=== PATIENT | female | born 1935 | race Caucasian/White ===

== ENCOUNTER → 2016-10-29 | Outpatient (CLI) | payer MEDICARE, BC ==
[~2016-10-29] MED LIST: ACET325 PO; AMLO5 PO; AMLO5TAB2 PO; AMLO5TAB96 PO; ASPI81 PO; ATEN-100 PO; ATEN25TA PO; BENZ1CAP8 PO; CALC1TAB55 PO; COQ1100C; COUM2.5T PO; COUM5TAB PO; FISH1000; FISH1000 PO; LISI-515 PO; PRAZ1CAP PO; ROSU10 PO; ROSU1TAB8 PO; VITA100021 SL; WARF2.5 PO
[2016-10-29 15:26] LABS: INTERNATIONAL NORMALIZED RATIO 1.8 RATIO; PROTHROMBIN TIME - PATIENT 20.1 SEC (9.8-11.6)
== END ==
LOC: PLAB 13:53
PROVIDERS: ATTEND Family Medicine
DX: Z51.81 Encounter for therapeutic drug level monitoring (principal); Z79.01 Long term (current) use of anticoagulants
CPT/HCPCS: 36415; 85610

== ENCOUNTER → 2016-11-06 | Outpatient (CLI) | payer MEDICARE, BC ==
[2016-11-06 12:35] LABS: PROTHROMBIN TIME - PATIENT 22.5 SEC (9.8-11.6)
[2016-11-06 13:04] LABS: BLOOD, URINE NEG (NEG); GLUCOSE,URINE NEG (NEG); KETONE, URINE NEG (NEG); MUCUS URINE FEW /lpf (OCC); NITRITE,URINE NEG (NEG); PH, URINE 6.5 (5.0-8.5); SQUAMOUS EPITHELIAL CELL URINE <1 /hpf (0-5); URINE COLOR YELLOW (YELLW/STRAW)
[2016-11-06 13:07] LABS: AUTOMATED NEUTROPHIL # 3.5 TH/MM3 (1.8-7.7); BASOPHIL # 0.1 TH/MM3 (0-0.2); BASOPHIL % 1.4 % (0.0-2.0); EOSINOPHIL # 0.2 TH/MM3 (0-0.4); EOSINOPHIL % 3.6 % (0.0-4.0); HEMATOCRIT 36.5 % (35.0-46.0); HEMO FLAGS DIFF FINAL; LYMPHOCYTE # 1.6 TH/MM3 (1.0-4.8); MEAN CELL VOLUME 86.4 FL (80.0-100.0); MEAN CORPUSCULAR HEMOGLOBIN 29.1 PG (27.0-34.0); MEAN CORPUSCULAR HGB CONC 33.6 % (32.0-36.0); PLATELET COUNT 156 TH/MM3 (150-450); RED BLOOD COUNT 4.22 MIL/MM3 (4.00-5.30); RED CELL DISTRIBUTION WIDTH 15.2 % (11.6-17.2); WHITE BLOOD COUNT 5.9 TH/MM3 (4.0-11.0)
[2016-11-06 13:09] LABS: URINE TOTAL PROTEIN TIMED 13.1 MG/DL
[2016-11-06 13:16] LABS: BICARBONATE 28.6 MEQ/L (21.0-32.0); POTASSIUM 4.4 MEQ/L (3.5-5.1)
[2016-11-06 13:28] LABS: KAPPA LAMBDA RATIO 2.63 (1.57-3.93); TOTAL PROTEIN SPE 7.5 GM/DL (6.0-7.6)
[2016-11-07 09:34] LABS: ALBUMIN SPE 4.67 GM/DL (3.50-5.00); ALPHA 1 GLOBULIN 0.21 GM/DL (0.11-0.29)
[2016-11-07 09:35] LABS: ALPHA 2 GLOBULIN 0.8 GM/DL (0.22-1.00); BETA GLOBULINS (SPE) 0.73 GM/DL (0.53-1.03)
[2016-11-07 12:07] LABS: ANA SCREEN NEG (NEG)
[2016-11-08 03:54] LABS: KAPPA/LAMBDA FREE 1.81 (0.26-1.65)
[2016-11-08 17:53] LABS: MYELOPEROXIDASE LESS THAN 1.0 AI (<1.0); PROTEINASE-3 LESS THAN 1.0 AI (<1.0)
== END ==
LOC: PLAB 11:22
PROVIDERS: ATTEND Internal Medicine Nephrology
DX: N18.3 Chronic kidney disease, stage 3 (moderate) (principal); Z79.01 Long term (current) use of anticoagulants
CPT/HCPCS: 36415; 80069; 81001; 82570; 82784; 83883; 83970; 84156; 84165; 85025; 85610; 86021; 86038; 86160; 86162; 86334; 86335; 86803

== ENCOUNTER → 2016-11-20 | Outpatient (CLI) | payer MEDICARE, BC ==
[2016-11-20 13:40] LABS: PROTHROMBIN TIME - PATIENT 23.3 SEC (9.8-11.6)
== END ==
LOC: PLAB 11:33
PROVIDERS: ATTEND Family Medicine
DX: Z79.01 Long term (current) use of anticoagulants (principal)
CPT/HCPCS: 36415; 85610

== ENCOUNTER 2016-12-06 21:11 | Inpatient (IN) | payer MEDICARE, BC ==
[~2016-12-06 21:11] MED LIST changes: -AMLO5 PO; -AMLO5TAB2 PO; -ATEN25TA PO; -BENZ1CAP8 PO; -CALC1TAB55 PO; -COQ1100C; -COUM2.5T PO; -COUM5TAB PO; -FISH1000; -LISI-515 PO; -PRAZ1CAP PO; -ROSU1TAB8 PO; -VITA100021 SL
[2016-12-06 21:16] VITALS: BP 185/94; PULSE 84; RESP 24; TEMP 99; O2SAT 97
[2016-12-06 21:55] VITALS: RESP 18; O2SAT 97
[2016-12-06] MEDS ORDERED: RESP: ALBUTEROL 2.5 MG/IPRATROPIUM 0.5 MG NEB (SCH) INH ONE (22:00)
--- NOTE | 2016-12-06 22:02 | PD ---
HPI Chief Complaint: Respiratory Distress Time Seen by Provider: 21:48 Travel History International Travel<30 days: No Contact w/Intl Traveler<30days: No Traveled to known affect area: No History of Present Illness HPI 80-year-old female presents to the emergency department for complaint of shortness of breath. Patient states for the past 2 days she's had a dry nonproductive cough. Patient was noted this evening while with her neighbors that she was having wheezing. Patient became concerned she may have pneumonia. Patient denies any fever or chills. Patient's had no hemoptysis or pleuritic chest pain. Patient denies any chest pain at this time. Patient has history of CAD with previous three-vessel CABG and porcine aortic valve replacement. Patient also has factor V Leiden for which she takes Coumadin daily. Patient more recently has been noted to have renal insufficiency and poorly controlled hypertension. Patient more recently has been placed under the care of Dr. Becerril as well as her primary provider Dr. Campa and her ongoing traffic court magistrate Dr. Andrade. Patient states she recently was started on a new blood pressure medication and took the first dose yesterday evening and took her second dose today at 5 PM. She does not know if her shortness of breath and cough are related to the new blood pressure medication. Patient rates pain 0/10 in intensity. Patient is unable to identify exacerbating or alleviating factors. No dyspnea on exertion orthopnea or PND. No shortness of breath at this time. Patient's had no sinus pressure drainage sore throat earache abdominal pain nausea vomiting diarrhea or urinary urgency frequency dysuria or hematuria. No flank pain. No new lower extremity pain or swelling. Patient reports she lives alone and became concerned that she may have pneumonia and that is why she presents at this time. [facility] Past Medical History Narrative Medical factor V leiden, hypertension, renal insufficiency, CAD, CABG, aortic valve disease, porcine aortic valve replacement, diminished hearing, dyslipidemia, cardiac catheterization, no tobacco use; nursing notes reviewed Blood Disorders: Yes (FACTOR 5 DISORDER) Heart Rhythm Problems: Yes (heart murmur) Cardiac Catheterization: Yes Cardiovascular Problems: Yes High Cholesterol: Yes Chest Pain: No Congestive Heart Failure: No Coronary Artery Disease: Yes Diabetes: No Diminished Hearing: Yes (HARD OF HEARING) Hypertension: Yes Myocardial Infarction: No Tetanus Vaccination: Unknown Influenza Vaccination: Yes ?: Not Menopausal: Yes Past Surgical History Cardiac Surgery: Yes (VALVE) Coronary Artery Bypass Graft: Yes (TRIPLE) Thoracic Surgery: Yes (CABG) Other Surgery: Yes Family History Family Myocardial Infarction: Yes Social History Alcohol Use: No Tobacco Use: No Substance Use: No Allergies-Medications (Allergen,Severity, Reaction): Coded Allergies: Ceclor (Verified Allergy, Severe, Hives, 12/06/16) Dexamethasone (Verified Allergy, Severe, Confusion, 12/06/16) Hydrocodone (Verified Allergy, Severe, Hives, 12/06/16) Niacin (Verified Allergy, Severe, HIVES, 12/06/16) Tricor (Verified Allergy, Severe, HIVES, 12/06/16) Reported Meds & Prescriptions Reported Meds & Active Scripts Active Reported Fish Oil (Blanca-3 Fatty Acids) 1,000 Mg Cap Calcium 500 +D3 (Calcium Carbonate-Cholecalciferol) 500-600 Mg-Unit Tab 1 Tab PO BID Vitamin B-12 (Cyanocobalamin) 1,000 Mcg Subl 1,000 Mcg SL DAILY Coq10 (Coenzyme Q10 (Ubidecarenone)) 100 Mg Cap Coumadin (Warfarin) 2.5 Mg Tab 2.5 Mg PO DIRECTED Coumadin (Warfarin) 5 Mg Tab 5 Mg PO DIRECTED Rosuvastatin (Rosuvastatin Calcium) 20 Mg Tab 20 Mg PO DAILY Atenolol 25 Mg Tab 12.5 Mg PO DAILY Lisinopril 20 Mg Tab 20 Mg PO BID Prazosin (Prazosin HCl) 1 Mg Cap 1 Mg PO BID Amlodipine (Amlodipine Besylate) 5 Mg Tab 5 Mg PO DAILY Review of Systems Except as stated in HPI: all other systems reviewed are Neg General / Constitutional: No: Fever, Chills HENT: No: Congestion Cardiovascular: No: Chest Pain or Discomfort, Diaphoresis Respiratory: Positive: Cough, Shortness of Breath, Wheezing Gastrointestinal: No: Nausea, Vomiting, Diarrhea, Abdominal Pain Genitourinary: No: Dysuria, Flank Pain Musculoskeletal: No: Myalgias, Arthralgias, Edema, Pain Skin: No Rash Neurologic: No: Weakness, Dizziness, Syncope, Focal Abnormalities, Coordination Problem Psychiatric: Positive: Anxiety Endocrine: No: Heat Intolerance Hematologic/Lymphatic: No: Easy Bruising Physical Exam Narrative GENERAL: Well-developed well-nourished female in no acute distress no respiratory distress SKIN: Warm and dry. HEAD: Atraumatic. Normocephalic. EYES: Pupils equal and round. No scleral icterus. No injection or drainage. ENT: No nasal bleeding or discharge. Mucous membranes pink and moist. NECK: Trachea midline. No JVD. CARDIOVASCULAR: Regular rate and rhythm. RESPIRATORY: No accessory muscle use. Clear to auscultation. Breath sounds equal bilaterally. GASTROINTESTINAL: Abdomen soft, non-tender, nondistended. Hepatic and splenic margins not palpable. MUSCULOSKELETAL: Extremities without clubbing, cyanosis, or edema. No obvious deformities. NEUROLOGICAL: Awake and alert. No obvious cranial nerve deficits. Motor grossly within normal limits. Five out of 5 muscle strength in the arms and legs. Normal speech. PSYCHIATRIC: Appropriate mood and affect; insight and judgment normal. Data Data Last Documented VS Vital Signs Date Time Temp Pulse Resp B/P Pulse Ox O2 Delivery O2 Flow Rate FiO2 12/06/16 22:43 75 18 213/89 97 Room Air 12/06/16 22:03 21 12/06/16 21:16 99.0 Orders Complete Blood Count With Diff (12/06/16 21:48) Basic Metabolic Panel (Bmp) (12/06/16 21:48) B-Type Natriuretic Peptide (12/06/16 21:48) Prothrombin Time / Inr (Pt) (12/06/16 21:48) Magnesium (Mg) (12/06/16 21:48) Ckmb (Isoenzyme) Profile (12/06/16 21:48) Troponin I (12/06/16 21:48) Urinalysis - C+S If Indicated (12/06/16 21:48) Influenzae A/B Antigen (12/06/16 21:48) Iv Access Insert/Monitor (12/06/16 21:48) Electrocardiogram (12/06/16 21:48) Ecg Monitoring (12/06/16 21:48) Oximetry (12/06/16 21:48) Oxygen Administration (12/06/16 21:48) Chest, Single Ap (12/06/16 21:48) Albuterol-Ipratropium Neb (Duoneb Neb) (12/06/16 22:00) CKMB (12/06/16 22:30) CKMB% (12/06/16 22:30) Acetaminophen (Tylenol) (12/07/16 00:00) Aspirin Chew (Aspirin Chew) (12/07/16 00:00) Nitroglycerin 2% Oint (Nitroglycerin 2% (12/07/16 00:00) Admit Order (Ed Use Only) (12/07/16 ) Admit To Inpatient (12/07/16 ) ^ Saline Lock (12/07/16 00:04) Vital Signs (Adult) Q4H (12/07/16 00:04) Resp Oxygen Bull C Titrat 1-4 L (12/07/16 ) Activity Oob With Assistance (12/07/16 00:04) ^ Notify Dr: Other (12/07/16 00:04) Sales Manager Prearranged Funerals / Telemetry .CONTINUOUS (12/07/16 00:04) Sodium Chloride 0.9% Flush (Ns Flush) (12/07/16 09:00) Intake + Output ADRIAN.QSHIFT (12/07/16 00:04) Sodium Chloride 0.9% Flush (Ns Flush) (12/07/16 00:15) Diet Npo (12/07/16 Breakfast) Consult Cardiology (12/07/16 00:04) Sodium Chlor 0.9% 1000 Ml Inj (Ns 1000 M (12/07/16 00:04) Sodium Chloride 0.9% Flush (Ns Flush) (12/07/16 00:15) Sodium Chloride 0.9% Flush (Ns Flush) (12/07/16 09:00) Ondansetron Inj (Zofran Inj) (12/07/16 00:15) Bisacodyl Supp (Dulcolax Supp) (12/07/16 00:15) Comprehensive Metabolic Panel (12/07/16 06:00) Complete Blood Count With Diff (12/07/16 06:00) Troponin I (12/07/16 06:00) Troponin I (12/07/16 12:00) Prothrombin Time / Inr (Pt) (12/08/16 06:00) Pharmacologic Contraindication (12/07/16 00:04) Acetaminophen (Tylenol) (12/07/16 00:15) Morphine Inj (Morphine Inj) (12/07/16 00:15) Inpatient Certification (12/07/16 ) Nitroglycerin 2% Oint (Nitroglycerin 2% (12/07/16 00:15) Amlodipine (Norvasc) (12/07/16 09:00) Atenolol (Tenormin) (12/07/16 09:00) Lisinopril (Prinivil) (12/07/16 09:00) Prazosin (Minipress) (12/07/16 09:00) Atorvastatin (Lipitor) (12/07/16 09:00) Labs Laboratory Tests Test 12/06/16 12/06/16 12/06/16 22:00 22:30 22:40 White Blood Count 6.0 TH/MM3 Red Blood Count 4.44 MIL/MM3 Hemoglobin 12.9 GM/DL Hematocrit 38.3 % Mean Corpuscular Volume 86.4 FL Mean Corpuscular Hemoglobin 29.1 PG Mean Corpuscular Hemoglobin 33.6 % Concent Red Cell Distribution Width 14.1 % Platelet Count 147 TH/MM3 Mean Platelet Volume 8.8 FL Neutrophils (%) (Auto) 74.5 % Lymphocytes (%) (Auto) 13.7 % Monocytes (%) (Auto) 6.7 % Eosinophils (%) (Auto) 4.5 % Basophils (%) (Auto) 0.6 % Neutrophils # (Auto) 4.5 TH/MM3 Lymphocytes # (Auto) 0.8 TH/MM3 Monocytes # (Auto) 0.4 TH/MM3 Eosinophils # (Auto) 0.3 TH/MM3 Basophils # (Auto) 0.0 TH/MM3 CBC Comment DIFF FINAL Differential Comment Prothrombin Time 31.0 SEC Prothromb Time International 2.7 RATIO Ratio Sodium Level 140 MEQ/L Potassium Level 4.9 MEQ/L Chloride Level 105 MEQ/L Carbon Dioxide Level 30.6 MEQ/L Anion Gap 4 MEQ/L Blood Urea Nitrogen 17 MG/DL Creatinine 1.20 MG/DL Estimat Glomerular Filtration 43 ML/MIN Rate Random Glucose 110 MG/DL Calcium Level 9.4 MG/DL Magnesium Level 2.0 MG/DL Total Creatine Kinase 189 U/L Creatine Kinase MB 3.9 NG/ML Troponin I 0.06 NG/ML B-Type Natriuretic Peptide 304 PG/ML Urine Color YELLOW Urine Turbidity CLEAR Urine pH 5.5 Urine Specific [place] 1.008 Urine Protein 100 mg/dL Urine Glucose (UA) NEG mg/dL Urine Ketones NEG mg/dL Urine Occult Blood SMALL Urine Nitrite NEG Urine Bilirubin NEG Urine Leukocyte Esterase NEG Urine RBC 3-5 /hpf Urine WBC 0-2 /hpf Urine Squamous Epithelial 0-5 /hpf Cells Urine Bacteria NONE /hpf Microscopic Urinalysis Comment CULT NOT INDICATED MDM Medical Decision Making Medical Screen Exam Complete: Yes Emergency Medical Condition: Yes Medical Record Reviewed: Yes (cardiac catheterization Dr. Nayana chu 07/2012 mildly elevated PA systolic pressure normal left ventricle systolic function severe aortic stenosis proximal to mid left anterior descending artery and proximal diagonal branch disease patent ZEE to LAD patent saphenous vein graft to diagonal branch could, circumflex and RCA system significant mid RCA disease with patent saphenous finger graft to mid RCA distal to the lesion normal LV systolic function with elevated left ventricular insert diastolic pressure subsequently patient underwent aortic valve replacement with porcine valve) Interpretation(s) EKG: Normal sinus rhythm rate 75 left bundle branch block pattern and left axis ; history of left bundle branch block since EKG 2011 Last Impressions Chest X-Ray 12/06/162147 Signed Impressions: Service Date/Time: November 22:21 - CONCLUSION: No acute disease. Edward Mondragon MD CBC & BMP Diagram 12/06/16 22:00 12/06/16 22:30 Vital Signs Date Time Temp Pulse Resp B/P Pulse Ox O2 Delivery O2 Flow Rate FiO2 12/06/16 22:43 75 18 213/89 97 Room Air 12/06/16 22:03 96 Room Air 12/06/16 22:03 96 Room Air 12/06/16 21:55 97 Room Air 12/06/16 21:55 18 97 Room Air 12/06/16 21:49 84 18 97 Room Air 12/06/16 21:16 99.0 84 24 185/94 97 Differential Diagnosis Dyspnea, CHF, ACS, bronchitis, pneumonia, PE, coagulopathy, electrolyte disturbance, anemia Narrative Course Patient placed on cardiac cath tech IV access obtained specimens collected and sent for resulting Patient received updraft treatment with resolution of wheezing and shortness of breath complaint Lab values pending patient conversing comfortably with visitor Chest x-ray no lobar infiltrate or vascular congestion CBC is automated differential mild left shift by automated differential otherwise values grossly normal range INR is therapeutic at 2.7 Chemistries remarkable for being gross within normal range creatinine is 1.20; troponin I however is elevated 0.06; CK total within normal range and CK-MB percent within normal limits 2% Patient aware of lab results and need for admission to the hospital reports feels well after updraft treatment administered aspirin 162 MG times one dose half inch Nitropaste applied to the chest wall; patient's case discussed with on -call traffic court magistrate for patient's traffic court magistrate Dr. Meeta Joseph requests patient be transferred to [facility] for ACS case discussed with on-call have his physician covering for Dr. Katheryn Norwood admit to her service to [facility] Physician Communication Physician Communication call placed to Dr Tim--discussed with Dr Preciado transfer to [facility] to medicine consult to Dr Tim; discussed with Dr Hoffman Diagnosis Primary Impression: Dyspnea Qualified Code: R06.02 - Shortness of breath Additional Impressions: ACS (acute coronary syndrome) Elevated troponin History of left bundle branch block (LBBB) Admitting Information Admitting Physician Requests: Admit Rowan Wylie MD Dec 06, 2016 22:02
[2016-12-06 22:03] VITALS: O2SAT 94; O2SAT 96
[2016-12-06 22:09] LABS: AUTOMATED NEUTROPHIL # 4.5 TH/MM3 (1.8-7.7); BASOPHIL % 0.6 % (0.0-2.0); EOSINOPHIL # 0.3 TH/MM3 (0-0.4); EOSINOPHIL % 4.5 % (0.0-4.0); HEMATOCRIT 38.3 % (35.0-46.0); HEMO FLAGS DIFF FINAL; LYMPH % 13.7 % (9.0-44.0); LYMPHOCYTE # 0.8 TH/MM3 (1.0-4.8); MEAN CELL VOLUME 86.4 FL (80.0-100.0); MEAN CORPUSCULAR HEMOGLOBIN 29.1 PG (27.0-34.0); MEAN CORPUSCULAR HGB CONC 33.6 % (32.0-36.0); MONO % 6.7 % (0.0-8.0); NEUT % 74.5 % (16.0-70.0); PLATELET COUNT 147 TH/MM3 (150-450); RED BLOOD COUNT 4.44 MIL/MM3 (4.00-5.30); RED CELL DISTRIBUTION WIDTH 14.1 % (11.6-17.2)
[2016-12-06] MEDS ORDERED: PRAZ1CAP PO (22:23)
[2016-12-06] MEDS ORDERED: LISI-515 PO (22:23)
[2016-12-06] MEDS ORDERED: AMLO5TAB2 PO (22:23)
[2016-12-06] MEDS ORDERED: ATEN25TA PO (22:31)
[2016-12-06] MEDS ORDERED: COUM5TAB PO (22:34)
[2016-12-06] MEDS ORDERED: COUM2.5T PO (22:34)
[2016-12-06] MEDS ORDERED: ROSU1TAB8 PO (22:34)
--- NOTE | 2016-12-06 22:36 | RADHPO ---
EXAM DATE/TIME: 12/06/2016 22:21 [place] COMPARISON: No previous studies available for comparison. INDICATIONS : Cough and congestion. MEDICAL HISTORY : Hypertension. SURGICAL HISTORY : CABG. Heart valve ENCOUNTER: Initial ACUITY: 1 day PAIN SCORE: 2/10 LOCATION: Bilateral chest FINDINGS: The patient is status post sternotomy. The heart size is normal. The lungs are clear. No effusion is seen. There appears to be a deformity at the proximal left humerus likely from prior fracturing. Ther e is an anterior cervical fusion plate in place.. CONCLUSION: No acute disease. Edward Mondragon MD on December 06, 2016 at 22:32 Board Certified Radiologist. This report was verified electronically.
[2016-12-06] MEDS ORDERED: FISH1000 (22:37)
[2016-12-06] MEDS ORDERED: COQ1100C (22:37)
[2016-12-06] MEDS ORDERED: VITA100021 SL (22:37)
[2016-12-06] MEDS ORDERED: CALC1TAB55 PO (22:37)
[2016-12-06 22:43] VITALS: BP 213/89; PULSE 75; RESP 18; O2SAT 97
[2016-12-06 22:54] LABS: INTERNATIONAL NORMALIZED RATIO 2.7 RATIO
[2016-12-06 22:55] LABS: CHLORIDE 105 MEQ/L (98-107); SODIUM (NA) 140 MEQ/L (136-145)
[2016-12-06 22:56] LABS: BLOOD, URINE SMALL (NEG); GLUCOSE,URINE NEG (NEG); KETONE, URINE NEG (NEG); NITRITE,URINE NEG (NEG); PH, URINE 5.5 (5.0-8.5)
[2016-12-06 22:58] LABS: ANION GAP 4 MEQ/L (5-15); BICARBONATE 30.6 MEQ/L (21.0-32.0); BLOOD UREA NITROGEN 17 MG/DL (7-18)
[2016-12-06 22:59] LABS: POTASSIUM 4.9 MEQ/L (3.5-5.1)
[2016-12-06 23:01] LABS: GLOMERULAR FILTRATION RATE 43 ML/MIN (>89)
[2016-12-06 23:01] LABS: COMMENT (UR) CULT NOT INDICATED; CULTURE IF INDICATED CULT NOT INDICATED; SQUAMOUS EPITHELIAL CELL URINE 0-5 /hpf (0-5); URINE COLOR YELLOW (YELLW/STRAW); WBC, URINE 0-2 /hpf (0-5)
[2016-12-06 23:05] LABS: CREATINE KINASE 189 U/L (26-192)
[2016-12-06 23:17] LABS: CKMB 3.9 NG/ML (0.5-3.6)
[2016-12-07] VITALS (21 sets, daily range): BP systolic 130–215; BP diastolic 61–95; PULSE 54–94; RESP 18–20; TEMP 98–98.4; O2SAT 96–98
[2016-12-07] MEDS ORDERED: NITROGLYCERIN 2% OINT 1 GM PACKET TOPICAL ONE
[2016-12-07] MEDS ORDERED: ASPIRIN 81 MG CHEW TAB CHEW ONE
[2016-12-07] MEDS ORDERED: ACETAMINOPHEN 325 MG TAB PO ONE
[2016-12-07] MEDS ORDERED: SODIUM CHLORIDE 0.9% FLUSH 5 ML FLUSH FLUSH PRN (00:15)
[2016-12-07] MEDS ORDERED: NITROGLYCERIN 2% OINT 1 GM PACKET TOPICAL PRN (00:15)
[2016-12-07] MEDS ORDERED: ONDANSETRON HCL 4 MG/2 ML VIAL IVP PRN (00:15)
[2016-12-07] MEDS ORDERED: MORPHINE SULFATE 4 MG/ML INJ IV PRN (00:15)
[2016-12-07] MEDS ORDERED: ACETAMINOPHEN 325 MG TAB PO PRN (00:15)
[2016-12-07] MEDS ORDERED: PILL SPLITTER OTHER PRN (00:15)
[2016-12-07] MEDS ORDERED: BISACODYL 10 MG SUPP PR PRN (00:15)
[2016-12-07] MEDS ORDERED: SODIUM CHLORIDE 0.9% FLUSH 5 ML FLUSH IVF PRN (00:15)
[2016-12-07] MEDS: SODIUM CHLOR 0.9% 1000 ML INJ 1,000 ML IV SCH ×3 (00:40→20:04)
[2016-12-07 05:45] LABS: AUTOMATED NEUTROPHIL # 3.3 TH/MM3 (1.8-7.7); BASOPHIL % 0.7 % (0.0-2.0); EOSINOPHIL # 0.2 TH/MM3 (0-0.4); EOSINOPHIL % 4.3 % (0.0-4.0); HEMATOCRIT 35.8 % (35.0-46.0); HEMO FLAGS DIFF FINAL; LYMPH % 22.3 % (9.0-44.0); LYMPHOCYTE # 1.1 TH/MM3 (1.0-4.8); MEAN CELL VOLUME 87.7 FL (80.0-100.0); MEAN CORPUSCULAR HEMOGLOBIN 29.1 PG (27.0-34.0); MEAN CORPUSCULAR HGB CONC 33.2 % (32.0-36.0); MONO % 10.2 % (0.0-8.0); NEUT % 62.5 % (16.0-70.0); PLATELET COUNT 144 TH/MM3 (150-450); RED BLOOD COUNT 4.09 MIL/MM3 (4.00-5.30); RED CELL DISTRIBUTION WIDTH 14.1 % (11.6-17.2); WHITE BLOOD COUNT 5.2 TH/MM3 (4.0-11.0)
[2016-12-07 06:29] LABS: ALKALINE PHOSPHATASE 47 U/L (45-117); ALT (GPT) 18 U/L (10-53); ANION GAP 8 MEQ/L (5-15); AST (GOT) 19 U/L (15-37); BICARBONATE 27.7 MEQ/L (21.0-32.0); BLOOD UREA NITROGEN 13 MG/DL (7-18); CHLORIDE 107 MEQ/L (98-107); GLOMERULAR FILTRATION RATE 48 ML/MIN (>89); POTASSIUM 3.8 MEQ/L (3.5-5.1); SODIUM (NA) 143 MEQ/L (136-145); TOTAL BILIRUBIN ADULT 0.6 MG/DL (0.2-1.0)
[2016-12-07] MEDS: LISINOPRIL 20 MG TAB PO SCH ×2 (07:34→20:58)
[2016-12-07] MEDS: ATORVASTATIN 40 MG TAB PO SCH (07:34)
[2016-12-07] MEDS: SODIUM CHLORIDE 0.9% FLUSH 5 ML FLUSH FLUSH SCH ×2 (07:35→20:58)
[2016-12-07] MEDS: ASPIRIN EC 81 MG TABEC PO SCH (08:30)
[2016-12-07] MEDS ORDERED: SODIUM CHLORIDE 0.9% FLUSH 5 ML FLUSH IVF SCH (09:00)
[2016-12-07] MEDS ORDERED: amLODIPine BESYLATE 5 MG TAB PO SCH (09:00)
[2016-12-07] MEDS ORDERED: ATENOLOL 25 MG TAB PO SCH (09:00)
[2016-12-07] MEDS ORDERED: PRAZOSIN HCL 1 MG CAP PO SCH (09:00)
[2016-12-07 09:08] LABS: CREATINE KINASE 131 U/L (26-192)
[2016-12-07 10:28] LABS: CKMB 3.5 NG/ML (0.5-3.6)
--- NOTE | 2016-12-07 11:51 | MB ---
cc: GENE DAY M.D., MARK B. M.D. SAXOUR, JOANNE D. M.D. DATE OF CONSULTATION 12/07/[address] Carolina Campa REASON FOR CONSULTATION Elevated troponin and coronary artery disease. HISTORY Ms. Moura is an 80-year-old white female who was doing well in her usual state of good health up until about two days ago when she started having a nonproductive cough and some minimal shortness of breath. She says over the past two days this has persisted. She denies any fevers, chills or night sweats. She was having some wheezing yesterday so she came to the emergency room for evaluation. She has also been having some trouble with her systolic blood pressure at home and it has been elevated above 150 she tells me. She denies any chest discomfort now or any time in the recent past. She denies orthopnea or PND type symptoms. She denies any lower extremity edema. PAST MEDICAL HISTORY 1. Coronary artery disease and aortic stenosis. 2. History of factor V Leiden for which she has been on long-term Coumadin anticoagulation. 3. DVT and PE. 4. longstanding hypertension. 5. [id number]. 7. Has chronic kidney disease. 8. Dyslipidemia 9. Denies any underlying pulmonary or liver disease. 10. longstanding heart murmur. PAST SURGICAL HISTORY Includes: 1. Aortic valve replaced with a porcine aortic valve around 2011. 2. Prior coronary artery bypass grafting surgery consisting of a saphenous vein bypass graft to the diagonal as well as the mid RCA and left internal mammary graft to the left anterior descending artery all of which were widely patent on a cardiac catheterization prior to her aortic valve replacement back on August 13, 2012. 3. Her left ventricular function was normal at that time with an ejection fraction of 60-65%. 4. She does not recall exact date of her bypass surgery, but says it was a of few years prior to her aortic valve surgery and was done at [facility]. ALLERGIES CECLOR, DEXAMETHASONE, HYDROCODONE, NIACIN AND TRICOR. CURRENT MEDICATIONS 1. Amlodipine 5 mg daily 2. Atenolol 12.5 mg daily 3. Lisinopril 20 mg p.o. b.i.d. 4. Prazosin 1 mg b.i.d. 5. Lipitor 40 mg daily 6. Warfarin which she was taken warfarin at home and is currently on hold. FAMILY HISTORY Significant for coronary artery disease. Father had cancer. Mother at age 60 with an MA. Had two sisters with hypertension, one sister with prior bypass surgery. SOCIAL HISTORY Denies tobacco or alcohol use. Walks on a regular basis. Does some water aerobics. REVIEW OF SYSTEMS Denies fevers, chills, night sweats, nausea, vomiting, diarrhea. Nonproductive cough as mentioned above. Denies lower extremity edema or claudication. Denies exertional or resting chest discomfort, orthopnea or PND type symptoms. Denies any recent bleeding problems. Except for that mentioned in the HPI, her complete 12-point review of systems is otherwise negative. PHYSICAL EXAM Physical examination reveals an elderly white female lying in bed in no distress at this time. VITAL SIGNS: Blood pressure 136/61 mmHg, heart rate is 58 and regular, respiratory rate 18, temperature 99, pulse oximeter is 97% on room air. HEAD: Normocephalic and atraumatic. EYES: Pupils equal and react to light. Sclerae anicteric. Extraocular movements intact. NECK: The neck is supple. There is no adenopathy. There is no jugular venous tension at 45 degrees. Carotid upstrokes are normal. There are no bruits. Thyroid exam is normal. LUNGS: Clear. HEART: PMI is not displaced. S1-S2 are normal. There is a grade 1-2/6 systolic murmur at the base. No diastolic murmurs, gallops or rubs. ABDOMEN: Bowel sounds present, soft, nontender, no hepatosplenomegaly, masses or bruits. EXTREMITIES: No cyanosis, clubbing or edema. Pulses are intact in the upper and lower extremities. Perfusion is adequate. NEUROLOGIC: Exam is nonfocal and grossly intact. Chest x-ray from last night shows no acute disease. EKG from admission last evening shows a sinus rhythm, left axis deviation, left bundle branch block, abnormal EKG. This EKG is unchanged compared to the previous tracings. LABORATORY DATA This morning white count 5.2, hemoglobin 11.9, hematocrit 35.8, platelet count 144,000. Last night on admission her INR was 2.7. Chemistries sodium 143, potassium 3.8, chloride 107, CO2 27.7, BUN 13, creatinine 1.10, glucose 100, calcium 8.8, magnesium 2.0, AST 19, total CPK on arrival last night at 2230 was 189 with a CPK-MB of 3.9 and a troponin-I of 0.06, a BNP of 304. Repeat CPK this morning at 0830 is 131 with a CPK-MB of 3.5. Troponin I at 05:30 five this morning increased 0.16. IMPRESSION 1. Nonproductive cough and wheezing possible viral bronchitis. 2. Indeterminate elevation of troponin I. 3. ASHD status post CABG consisting of left internal mammary graft to LAD, SVT to RCA and diagonal branch. Patent on cardiac catheterization in 2011. 4. Aortic stenosis status post aortic valve replacement with a bioprosthetic valve in 2011. 5. Factor V Leiden. 6. Long-term anticoagulation therapy with Warfarin. 7. CKD 8. Advanced age 9. Hyperlipidemia RECOMMENDATIONS The patient's indeterminate troponin elevation is of uncertain etiology. Acute coronary syndrome needs to be excluded. She does have some mild renal insufficiency as noted. I had a long discussion with the patient about her symptoms which do not appear to be very suspicious from a cardiac standpoint, however, further inpatient workup and testing is certainly indicated. She is very concerned about her renal insufficiency and sees Dr. Becerril for that. She is currently opposed to any procedures requiring intravenous contrast materials that may affect her kidney function. We had a long discussion about this and she has agreed [facility] for further workup there. I think we will continue to monitor her cardiac enzymes and telemetry. An echocardiogram has been scheduled to evaluate her left ventricular function and aortic valve function. Depending on her followup enzymes and echocardiogram findings will determine what further inpatient cardiovascular testing is indicated. Her warfarin will be placed on hold for the next 24 hours and will be covered with enoxaparin if required until a determination is made. I will follow her with you with further recommendations until Dr. Day returns on Saturday. Thank you for allowing us to participate in the care of this patent care. MD MARCUS Tavarez/AVRIL /10:43 AM /11:20 AM MTDCarine
--- NOTE | 2016-12-07 12:55 | EKG ---
Date Performed: 12/06/2016 Time Performed: 21:25:58 PTAGE: 80 years EKG: Sinus rhythm Left axis deviation Left bundle branch block Abnormal ECG PREVIOUS TRACING : 08/13/2012 06.54 Since previous tracing, no significant change noted DOCTOR: Francis Freed Interpretating Date/Time 12/07/2016 12:53:31
--- NOTE | 2016-12-07 15:53 | HHI.HP ---
cc: Carolina Campa MD [facility] Service [facility] Primary Care Physician Carolina Campa MD Admission Diagnosis dyspnea; acs; elevated troponin I Diagnoses: (1) Elevated troponin (2) Dyspnea (3) ACS (acute coronary syndrome) (4) History of left bundle branch block (LBBB) (5) Hyperlipidemia (6) Hypertension (7) Factor V Leiden (8) Chronic kidney disease, stage 3 Chief Complaint: Dyspnea, wheeze, elevated BP Travel History International Travel<30 Days: No Contact w/Intl Traveler <30 Da: No Traveled to Known Affected Are: No History of Present Illness The patient is an 80-year-old female who presented to the emergency department for evaluation of mild shortness of breath and wheezing. She also was concerned about significantly elevated blood pressure. She states that her systolic blood pressure was 243 at home yesterday. She states that it has been elevated over the past month, but not quite that high. Denies chest pain. Still having some wheezing. Dry cough. No fever, chills, night sweats. Review of Systems Constitutional: DENIES: Fever, Chills, Night Sweats Eyes: DENIES: Blurred vision, Vision loss Ears, nose, mouth, throat: DENIES: Hearing loss Respiratory: COMPLAINS OF: Cough, Wheezing, Shortness of breath, DENIES: Sputum production Cardiovascular: DENIES: Chest pain, Palpitations, Dyspnea on Exertion, Lower Extremity Edema Gastrointestinal: DENIES: Abdominal pain, Constipation, Diarrhea, Nausea, Vomiting Genitourinary: DENIES: Urinary frequency, Urinary incontinence, Urgency, Hematuria, Dysuria, Nocturia Musculoskeletal: DENIES: Joint pain, Muscle aches Integumentary: DENIES: Pruritus, Rash Hematologic/lymphatic: DENIES: Bruising Neurologic: DENIES: Headache Past Family Social History Past Medical History Coronary artery disease Aortic stenosis Factor V Leiden Hypertension Dyslipidemia Chronic kidney disease stage III Past Surgical History CABG 3 vessels Porcine aortic valve replacement Reported Medications Amlodipine 5 mg daily Atenolol 12.5 mg daily Lisinopril 20 mg twice a day Prazosin 1 mg twice a day Lipitor 40 mg daily Warfarin Allergies: Coded Allergies: Ceclor (Verified Allergy, Severe, Hives, 12/06/16) Dexamethasone (Verified Allergy, Severe, Confusion, 12/06/16) Hydrocodone (Verified Allergy, Severe, Hives, 12/06/16) Niacin (Verified Allergy, Severe, HIVES, 12/06/16) Tricor (Verified Allergy, Severe, HIVES, 12/06/16) Family History Mother had heart disease. Father had stomach cancer. Social History Denies alcohol, tobacco, or illicit drug use. Physical Exam Vital Signs Vital Signs Date Time Temp Pulse Resp B/P Pulse Ox O2 Delivery O2 Flow Rate FiO2 12/07/16 12:50 70 18 155/78 98 12/07/16 11:17 98 Room Air 12/07/16 11:17 69 18 141/70 98 Room Air 12/07/16 08:29 58 18 136/61 97 12/07/16 08:15 96 21 12/07/16 07:00 64 208/95 12/07/16 05:38 65 18 182/74 96 Room Air 12/07/16 04:50 18 12/07/16 04:27 66 18 190/84 97 Room Air 12/07/16 01:16 66 18 189/85 97 Room Air 12/07/16 00:58 70 18 215/70 97 Room Air 12/06/16 22:43 75 18 213/89 97 Room Air 12/06/16 22:03 96 Room Air 12/06/16 22:03 96 Room Air 12/06/16 22:03 94 21 12/06/16 21:55 97 Room Air 12/06/16 21:55 18 97 Room Air 12/06/16 21:49 84 18 97 Room Air 12/06/16 21:16 99.0 84 24 185/94 97 Physical Exam GENERAL: Well-nourished, well-developed female in no acute distress. HEENT: Normocephalic, atraumatic. Pupils equal, round and reactive. Extraocular movements intact. No scleral icterus. No injection or drainage. Oropharynx is clear. Mucous membranes are moist. CARDIOVASCULAR: Regular rate and rhythm. 2/6 systolic murmur. RESPIRATORY: Mild scattered wheeze. Breathing is non-labored. GASTROINTESTINAL: Abdomen soft, non-tender, nondistended. EXTREMITIES: No lower extremity edema. No calf tenderness. PSYCH: Alert and oriented x 3. Laboratory Laboratory Tests Test 12/06/16 12/06/16 12/06/16 12/07/16 22:00 22:30 22:40 05:35 White Blood Count 6.0 5.2 Red Blood Count 4.44 4.09 Hemoglobin 12.9 11.9 Hematocrit 38.3 35.8 Mean Corpuscular Volume 86.4 87.7 Mean Corpuscular Hemoglobin 29.1 29.1 Mean Corpuscular Hemoglobin 33.6 33.2 Concent Red Cell Distribution Width 14.1 14.1 Platelet Count 147 144 Mean Platelet Volume 8.8 8.1 Neutrophils (%) (Auto) 74.5 62.5 Lymphocytes (%) (Auto) 13.7 22.3 Monocytes (%) (Auto) 6.7 10.2 Eosinophils (%) (Auto) 4.5 4.3 Basophils (%) (Auto) 0.6 0.7 Neutrophils # (Auto) 4.5 3.3 Lymphocytes # (Auto) 0.8 1.1 Monocytes # (Auto) 0.4 0.5 Eosinophils # (Auto) 0.3 0.2 Basophils # (Auto) 0.0 0.0 CBC Comment DIFF FINAL DIFF FINAL Differential Comment Prothrombin Time 31.0 Prothromb Time International 2.7 Ratio Sodium Level 140 143 Potassium Level 4.9 3.8 Chloride Level 105 107 Carbon Dioxide Level 30.6 27.7 Anion Gap 4 8 Blood Urea Nitrogen 17 13 Creatinine 1.20 1.10 Estimat Glomerular Filtration 43 48 Rate Random Glucose 110 100 Calcium Level 9.4 8.8 Magnesium Level 2.0 Total Creatine Kinase 189 Creatine Kinase MB 3.9 Troponin I 0.06 0.16 B-Type Natriuretic Peptide 304 Urine Color YELLOW Urine Turbidity CLEAR Urine pH 5.5 Urine Specific [place] 1.008 Urine Protein 100 Urine Glucose (UA) NEG Urine Ketones NEG Urine Occult Blood SMALL Urine Nitrite NEG Urine Bilirubin NEG Urine Leukocyte Esterase NEG Urine RBC 3-5 Urine WBC 0-2 Urine Squamous Epithelial 0-5 Cells Urine Bacteria NONE Microscopic Urinalysis Comment CULT NOT INDICATED Total Bilirubin 0.6 Aspartate Amino Transf 19 (AST/SGOT) Alanine Aminotransferase 18 (ALT/SGPT) Alkaline Phosphatase 47 Total Protein 7.2 Albumin 3.5 Test 12/07/16 12/07/16 08:30 11:44 Total Creatine Kinase 131 Creatine Kinase MB 3.5 Troponin I 0.08 Date/Time Procedure Status Source Growth 12/06/16 22:30 Influenza Types A,B Antigen (KENNY) - Final Complete Nasal Washing NEGATIVE FOR FLU A AND B ANTIGEN.... Result Diagram: 12/07/16 0535 12/07/16 0535 Imaging Last Impressions Chest X-Ray 12/06/16 2140 Signed Impressions: Service Date/Time: November 22:21 - CONCLUSION: No acute disease. Edward Mondragon MD Assessment and Plan Assessment and Plan 1. Nonproductive cough, wheeze: Possibly viral bronchitis. Continue bronchodilators, supplemental oxygen as needed. 2. Mild troponin elevation: Appreciate cardiology recommendations. Planning for nuclear stress test tomorrow. 3. Coronary artery disease: History of CABG. Appreciate cardiology recommendations. 4. Chronic kidney disease stage III: Creatinine improved this morning. Appreciate nephrology recommendations. 5. Hyperlipidemia: Continue statin. 6. Factor V Leiden: Continue Coumadin. 7. DVT prophylaxis: Coumadin. Problem Qualifiers (1) Dyspnea: Qualified Code: R06.02 - Shortness of breath Christopher Harper MD Dec 07, 2016 15:53
[2016-12-07] MEDS ORDERED: WARFARIN SOD 2.5 MG TAB PO ONE (16:00)
--- NOTE | 2016-12-07 16:53 | PD.CONS ---
[facility] Service Nephrology Consult Requested By Dr. Preciado Reason for Consult Known CKD stage 3, potential catheterization tomorrow Primary Care Physician Carolina Campa MD History of Present Illness The patient is an 80 yo [place] female who is known to our services for CKD stage 3 related to hypertensive nephrosclerosis. States she was walking home yesterday after a card game with her friends and began wheezing. Denied any SOB or CP. States she "felt like she was coming down with a cold." She took her BP once she got home and her systolic pressure was 243mmHg. She became alarmed, so she went to [facility] for evaluation. She has had a recent worsening of her BP and has had some medication changes recently. Of note, her systolic pressures are elevated in the PMs with avg 170-190mmHg. She uses Atenolol 25mg QD, Lisinopril 20mg BID, Norvasc 5mg QD (added 12/05), and Prazosin 2mg HS (was increased from 1mg on 11/28). She does have cardiac hx as well with aortic valve replacement and CABG done previously. See follows with Dr. Day as outpatient. Outpatient SCr baseline is 1.2-1.3 since March 2016 Admitting SCr was 1.2 and improved to 1.1 at time of consult. We were consulted for follow of her CKD as well as input on potential contrast exposure with cardiac cath. (Martha Harrison) Review of Systems Respiratory: COMPLAINS OF: Wheezing (Martha Harrison) Past Family Social History Allergies: Coded Allergies: Ceclor (Verified Allergy, Severe, Hives, 12/06/16) Dexamethasone (Verified Allergy, Severe, Confusion, 12/06/16) Hydrocodone (Verified Allergy, Severe, Hives, 12/06/16) Niacin (Verified Allergy, Severe, HIVES, 12/06/16) Tricor (Verified Allergy, Severe, HIVES, 12/06/16) Past Medical History CKD stage 3 HTN Diet controlled DM Aortic stenosis CAD HLD Past Surgical History Aortic valve replacement CABG Colonoscopy/EGD C spine surgery Reported Medications Reported Meds & Active Scripts Active Reported Fish Oil ([place]-3 Fatty Acids) 1,000 Mg Cap Calcium 500 +D3 (Calcium Carbonate-Cholecalciferol) 500-600 Mg-Unit Tab 1 Tab PO BID Vitamin B-12 (Cyanocobalamin) 1,000 Mcg Subl 1,000 Mcg SL DAILY Coq10 (Coenzyme Q10 (Ubidecarenone)) 100 Mg Cap Coumadin (Warfarin) 2.5 Mg Tab 2.5 Mg PO DIRECTED Coumadin (Warfarin) 5 Mg Tab 5 Mg PO DIRECTED Rosuvastatin (Rosuvastatin Calcium) 20 Mg Tab 20 Mg PO DAILY Atenolol 25 Mg Tab 12.5 Mg PO DAILY Lisinopril 20 Mg Tab 20 Mg PO BID Prazosin (Prazosin HCl) 1 Mg Cap 1 Mg PO BID Amlodipine (Amlodipine Besylate) 5 Mg Tab 5 Mg PO DAILY Active Ordered Medications Current Medications Medications (Trade) Dose Ordered Sig/Jordi Route Start Time Stop Time Status Last Admin (NS 1000 ml Inj) 1,000 ml @ 100 mls/hr Q10H IV 12/07/16 00:04 12/07/16 11:15 (NS Flush) 2 ml UNSCH PRN FLUSH 12/07/16 00:15 (NS Flush) 2 ml BID FLUSH 12/07/16 09:00 (Zofran Inj) 4 mg Q6H PRN IVP 12/07/16 00:15 (Dulcolax Supp) 10 mg DAILY PRN UT 12/07/16 00:15 (Tylenol) 650 mg Q6H PRN PO 12/07/16 00:15 (Morphine Inj) 2 mg Q3H PRN IV 12/07/16 00:15 (Nitroglycerin 2% Oint) 0.5 inch Q6HR PRN TOPICAL 12/07/16 00:15 (Norvasc) 5 mg DAILY PO 12/07/16 09:00 12/07/16 07:33 (Tenormin) 12.5 mg DAILY PO 12/07/16 09:00 12/07/16 07:33 (Prinivil) 20 mg BID PO 12/07/16 09:00 12/07/16 07:34 (Minipress) 1 mg BID PO 12/07/16 09:00 12/07/16 07:34 (Lipitor) 40 mg DAILY PO 12/07/16 09:00 12/07/16 07:34 (Pill Splitter) 1 ea UNSCH PRN OTHER 12/07/16 00:15 Aspirin 81 mg 81 mg DAILY PO 12/07/16 09:00 12/07/16 08:30 (Coumadin Consult Pharmacy) 0 ml @ 0 mls/hr UNSCH OTHER 12/07/16 16:00 (Coumadin) 5 mg SuTuThSa@16 PO 12/08/16 16:00 (Coumadin) 2.5 mg MoWeFr@16 PO 12/10/16 16:00 Family History Mother age 60 from [place] Sister with ESRD potentially from HTN and/or DM Social History Denies EtOH, no tobacco use, no illicit drug use (Martha Harrison) Physical Exam Vital Signs Vital Signs Date Time Temp Pulse Resp B/P Pulse Ox O2 Delivery O2 Flow Rate FiO2 12/07/16 12:50 70 18 155/78 98 12/07/16 11:17 98 Room Air 12/07/16 11:17 69 18 141/70 98 Room Air 12/07/16 08:29 58 18 136/61 97 12/07/16 08:15 96 21 12/07/16 07:00 64 208/95 12/07/16 05:38 65 18 182/74 96 Room Air 12/07/16 04:50 18 12/07/16 04:27 66 18 190/84 97 Room Air 12/07/16 01:16 66 18 189/85 97 Room Air 12/07/16 00:58 70 18 215/70 97 Room Air 12/06/16 22:43 75 18 213/89 97 Room Air 12/06/16 22:03 96 Room Air 12/06/16 22:03 96 Room Air 12/06/16 22:03 94 21 12/06/16 21:55 97 Room Air 12/06/16 21:55 18 97 Room Air 12/06/16 21:49 84 18 97 Room Air 12/06/16 21:16 99.0 84 24 185/94 97 Physical Exam GENERAL: Sitting up in bed. Alert, conversive, NAD. Is notably anxious. SKIN: Warm and dry. HEAD: Atraumatic. Normocephalic. EYES: Pupils equal and round. No scleral icterus. No injection or drainage. ENT: No nasal bleeding or discharge. Mucous membranes pink and moist. NECK: Trachea midline. No JVD. CARDIOVASCULAR: Regular rate and rhythm. RESPIRATORY: No accessory muscle use. Expiratory wheezing throughout. GASTROINTESTINAL: Abdomen soft, non-tender, nondistended. Hepatic and splenic margins not palpable. MUSCULOSKELETAL: Extremities without clubbing, cyanosis, or edema. No obvious deformities. NEUROLOGICAL: Awake and alert. Normal speech. PSYCHIATRIC: Appropriate mood and affect; insight and judgment normal. Laboratory Laboratory Tests Test 12/06/16 12/06/16 12/06/16 12/07/16 22:00 22:30 22:40 05:35 White Blood Count 6.0 5.2 Red Blood Count 4.44 4.09 Hemoglobin 12.9 11.9 Hematocrit 38.3 35.8 Mean Corpuscular Volume 86.4 87.7 Mean Corpuscular Hemoglobin 29.1 29.1 Mean Corpuscular Hemoglobin 33.6 33.2 Concent Red Cell Distribution Width 14.1 14.1 Platelet Count 147 144 Mean Platelet Volume 8.8 8.1 Neutrophils (%) (Auto) 74.5 62.5 Lymphocytes (%) (Auto) 13.7 22.3 Monocytes (%) (Auto) 6.7 10.2 Eosinophils (%) (Auto) 4.5 4.3 Basophils (%) (Auto) 0.6 0.7 Neutrophils # (Auto) 4.5 3.3 Lymphocytes # (Auto) 0.8 1.1 Monocytes # (Auto) 0.4 0.5 Eosinophils # (Auto) 0.3 0.2 Basophils # (Auto) 0.0 0.0 CBC Comment DIFF FINAL DIFF FINAL Differential Comment Prothrombin Time 31.0 Prothromb Time International 2.7 Ratio Sodium Level 140 143 Potassium Level 4.9 3.8 Chloride Level 105 107 Carbon Dioxide Level 30.6 27.7 Anion Gap 4 8 Blood Urea Nitrogen 17 13 Creatinine 1.20 1.10 Estimat Glomerular Filtration 43 48 Rate Random Glucose 110 100 Calcium Level 9.4 8.8 Magnesium Level 2.0 Total Creatine Kinase 189 Creatine Kinase MB 3.9 Troponin I 0.06 0.16 B-Type Natriuretic Peptide 304 Urine Color YELLOW Urine Turbidity CLEAR Urine pH 5.5 Urine Specific [place] 1.008 Urine Protein 100 Urine Glucose (UA) NEG Urine Ketones NEG Urine Occult Blood SMALL Urine Nitrite NEG Urine Bilirubin NEG Urine Leukocyte Esterase NEG Urine RBC 3-5 Urine WBC 0-2 Urine Squamous Epithelial 0-5 Cells Urine Bacteria NONE Microscopic Urinalysis Comment CULT NOT INDICATED Total Bilirubin 0.6 Aspartate Amino Transf 19 (AST/SGOT) Alanine Aminotransferase 18 (ALT/SGPT) Alkaline Phosphatase 47 Total Protein 7.2 Albumin 3.5 Test 12/07/16 12/07/16 08:30 11:44 Total Creatine Kinase 131 Creatine Kinase MB 3.5 Troponin I 0.08 Date/Time Procedure Status Source Growth 12/06/16 22:30 Influenza Types A,B Antigen (KENNY) - Final Complete Nasal Washing NEGATIVE FOR FLU A AND B ANTIGEN.... (Martha Hrarison) Result Diagram: 12/07/16 0535 12/07/16 0535 Imaging Last Impressions Chest X-Ray 12/06/162147 Signed Impressions: Service Date/Time: , December 06, 2016 22:21 - CONCLUSION: No acute disease. Edward Mondragon MD (Martha Harrison) Assessment and Plan Problem List: (1) Chronic kidney disease, stage 3 Plan: She is actually at or better than her typical SCr baseline. We will continue to monitor. Medications should be adjusted for her ESRD. (2) Hypertension Plan: BP has been elevated in house. To continue on Atenolol at 25mg QD, Prazosin at 2mg HS, Lisinopril at 20mg BID, but will increase Amlodipine to 10mg QD. Will monitor and adjust as needed. (3) Elevated troponin Plan: Mgmt as per cardiology. Appears stress test is scheduled for tomorrow. The patient is quite anxious about potentially needing cardiac catheterization as she is worried about her renal functions with iodine contrast. Advised the patient that she must weigh the risks and benefits of the procedure and decide with the aid of the blend plant operator to proceed or not. Given her medical history, age, and current renal functions, her risk of potential reversible renal injury that should resolve within 48h is approximately 14%. The risk of her sustaining renal injury that would require dialytic intervention which may be temporary or permanent is approximately 0.12%. We would premedicate her with IVF with NS as well as MucoMyst to prep her for procedure if she should agree. She is aware of the risks and will have to assume these with Dr. Preciado as discussed. (4) Factor V Leiden Plan: Continue on anticoagulation as ordered. Coumadin held and given Heparin today awaiting decision on procedure. (Martha Harrison) Assessment and Plan The exam, history, and the medical decision-making described in the above note were completed with the assistance of the KELVIN. I reviewed and agree with the findings presented. I attest that I had a [id number] encounter with the patient on the same day, and personally performed and documented my assessment and findings in the medical record. (Rachna Becerril MD) Martha Harrison Dec 07, 2016 16:53 Rachna Becerril MD Dec 08, 2016 14:45
[2016-12-07] MEDS ORDERED: cloNIDine HCL 0.1 MG TAB PO ONE ×2 (17:45)
--- NOTE | 2016-12-07 19:02 | EC ---
Study Study Date:12/07/2016 STUDY CONCLUSIONS SUMMARY - Left ventricle: The cavity size was normal. Systolic function was normal. The estimated ejection fraction was in the range of 55% to 60%. Wall motion was normal; there were no regional wall motion abnormalities. - Aortic valve: There was mild stenosis. Trace regurgitation. Valve area: 1.34cm^2(VTI). Valve area: 1.39cm^2 (Vmax). - Mitral valve: Moderately to severely calcified annulus. The findings are consistent with moderate stenosis. Mild regurgitation. Valve area by pressure half-time: 1.31cm^2. - Left atrium: The atrium was mildly dilated. - Right atrium: The atrium was mildly dilated. - Tricuspid valve: Mild regurgitation. - Pulmonary arteries: PA peak pressure: 40mm Hg (S). If LV function is below 40, please consider prescribing an ACEI or ARB or document rationale for non-use. PROCEDURE DATA STUDY STATUS: Elective. Procedure: Transthoracic echocardiography. Image quality was good. Scanning was performed from the parasternal, apical, and subcostal acoustic windows. Study completion: The patient tolerated the procedure well. Transthoracic echocardiography. M-mode, complete 2D, complete spectral Doppler, and color Doppler. Patient status: Inpatient. CARDIAC ANATOMY LEFT VENTRICLE: The cavity size was normal. Systolic function was normal. The estimated ejection fraction was in the range of 55% to 60%. Wall motion was normal; there were no regional wall motion abnormalities. AORTIC VALVE: The valve appears to be grossly normal. Doppler: There was mild stenosis. Trace regurgitation. Valve area: 1.34cm^2(VTI). Valve area: 1.39cm^2 (Vmax). Mean gradient: 15mm Hg (S). Peak gradient: 29mm Hg (S). MITRAL VALVE: Moderately to severely calcified annulus. Doppler: The findings are consistent with moderate stenosis. Mild regurgitation. Valve area by pressure half-time: 1.31cm^2. Peak gradient: 5mm Hg (D). LEFT ATRIUM: The atrium was mildly dilated. VENTRICULAR SEPTUM: The outflow septum had a sigmoid appearance. PULMONIC VALVE: Not well visualized. TRICUSPID VALVE: The valve appears to be grossly normal. Doppler: There was no evidence for stenosis. Mild regurgitation. RIGHT ATRIUM: The atrium was mildly dilated. PERICARDIUM: There was no pericardial effusion. BASIC MEASUREMENTS ADULT NORMAL Left ventricle LV internal dimension, ED, chordal level, *41.6 mm 43-52 PLAX LV internal dimension, ES, chordal level, 26.6 mm 23-38 PLAX Fractional shortening, chordal level, PLAX 36 % >29 LV posterior wall thickness, ED 9.93 mm IVS/LVPW ratio, ED *1.5 <1.3 Ventricular septum Septal thickness, ED 14.9 mm Aortic valve Leaflet separation 15 mm 15-26 Right ventricle RV internal dimension, ED, PLAX 26.2 mm 19-38 BASIC MEASUREMENTS ADULT NORMAL Aortic valve Leaflet separation 15 mm 15-26 Aorta Root diameter, ED 26 mm 20-37 Left atrium Anterior-posterior dimension, ES 37 mm 19-40 LA/aortic root ratio 1.42 DOPPLER MEASUREMENTS ADULT NORMAL Main pulmonary artery Pressure, S *40 mm Hg =30 Aortic valve Peak velocity, S 270 cm/s Mean velocity, S 178 cm/s VTI, S 67 cm Mean gradient, S 15 mm Hg Peak gradient, S 29 mm Hg Valve area, VTI 1.34 cm^2 Valve area, Vmax 1.39 cm^2 Mitral valve Peak E-wave velocity 114 cm/s Peak A-wave velocity 135 cm/s Deceleration time *433 ms 150-230 Pressure half-time 168 ms Peak gradient, D 5 mm Hg Peak E/A ratio 0.8 Valve area, pressure half-time 1.31 cm^2 Tricuspid valve Regurgitant peak velocity 239 cm/s Peak RV-RA gradient, S 23 mm Hg Maximal regurgitant velocity 239 cm/s Systemic veins Estimated CVP 10 mm Hg Right ventricle RV pressure, S *40 mm Hg <30 LEGEND: Mean values are shown as u=mean value. Asterisk (*) laura values outside specified normal range. Prepared and signed by Magen Hernandez [id number]
[2016-12-07] MEDS: PRAZOSIN HCL 1 MG CAP PO SCH (20:58)
[2016-12-07] MEDS ORDERED: BENZOCAINE-MENTHOL (SUGAR FREE) 15 MG-3.6 MG LOZENGE BUCCAL ONE (21:15)
[2016-12-07] MEDS: RESP: ALBUTEROL 2.5 MG/IPRATROPIUM 0.5 MG NEB (PRN) NEB (21:46)
[2016-12-08] VITALS (23 sets, daily range): BP systolic 94–157; BP diastolic 48–77; PULSE 48–64; RESP 16–18; TEMP 97.9–98.5; O2SAT 96–98
[2016-12-08] MEDS: SODIUM CHLOR 0.9% 1000 ML INJ 1,000 ML IV SCH (05:54)
[2016-12-08 07:55] LABS: HEMATOCRIT 30.9 % (35.0-46.0); MEAN CELL VOLUME 86.4 FL (80.0-100.0); MEAN CORPUSCULAR HEMOGLOBIN 29.3 PG (27.0-34.0); MEAN CORPUSCULAR HGB CONC 33.9 % (32.0-36.0); PLATELET COUNT 127 TH/MM3 (150-450); RED BLOOD COUNT 3.58 MIL/MM3 (4.00-5.30); RED CELL DISTRIBUTION WIDTH 14.7 % (11.6-17.2); REVIEW FLAG FINAL; WHITE BLOOD COUNT 3.4 TH/MM3 (4.0-11.0)
--- NOTE | 2016-12-08 07:57 | HHI.PR ---
Subjective Remarks Follow up elevated troponin, cough/wheeze. The patient denies chest pain. She is still coughing occasionally. Wheezing has improved. She hopes to go home after the stress test. Objective Vitals Vital Signs Date Time Temp Pulse Resp B/P Pulse Ox O2 Delivery O2 Flow Rate FiO2 12/08/16 05:00 53 12/08/16 04:00 Room Air 12/08/16 04:00 52 12/08/16 04:00 98.2 52 18 102/48 96 12/08/16 03:00 55 12/08/16 02:00 57 12/08/16 01:00 56 12/08/16 00:00 Room Air 12/08/16 00:00 98.5 55 18 94/58 97 12/08/16 00:00 55 12/07/16 23:00 54 12/07/16 22:00 56 12/07/16 21:49 98 21 12/07/16 21:00 60 12/07/16 20:00 98.4 63 20 130/69 97 12/07/16 20:00 63 12/07/16 20:00 Room Air 12/07/16 18:00 72 12/07/16 17:00 54 12/07/16 16:30 98.1 63 20 196/84 98 12/07/16 16:00 60 12/07/16 15:00 64 12/07/16 14:00 94 12/07/16 13:45 98.0 59 20 139/72 97 12/07/16 12:50 70 18 155/78 98 12/07/16 11:17 98 Room Air 12/07/16 11:17 69 18 141/70 98 Room Air 12/07/16 08:29 58 18 136/61 97 12/07/16 08:15 96 21 I/O 12/07/16 12/07/16 12/07/16 12/08/16 12/08/16 12/08/16 07:00 15:00 23:00 07:00 15:00 23:00 Intake Total 1000 ml 480 ml 1240 ml Output Total 900 ml Balance 1000 ml 480 ml 340 ml Intake Oral 480 ml 240 ml IV Total 1000 ml 1000 ml Output Urine Total 900 ml # Voids 1 1 4 # Bowel Movements 1 0 Result Diagram: 12/08/16 0648 12/07/16 0535 Imaging Last Impressions Chest X-Ray 12/06/16 2148 Signed Impressions: Service Date/Time: November 22:21 - CONCLUSION: No acute disease. Edward Mondragon MD Objective Remarks General: Elderly female in no acute distress. Heart: Regular rate and rhythm. No murmur. Lungs: Clear to auscultation bilaterally. No wheezes, rales, or rhonchi. Breathing is nonlabored. Abdomen: Soft, nontender, nondistended. Extremities: No lower extremity edema. Psych: Alert and oriented. Procedures None Urinary Catheter: No Vascular Central Line Catheter: No A/P Problem List: (1) Elevated troponin ICD Code: R74.8 Status: Acute (2) Dyspnea ICD Code: R06.00 Status: Acute (3) ACS (acute coronary syndrome) ICD Code: I24.9 Status: Acute (4) History of left bundle branch block (LBBB) ICD Code: Z86.79 Status: Acute (5) Hyperlipidemia ICD Code: E78.5 Status: Acute (6) Hypertension ICD Code: I10 Status: Acute (7) Factor V Leiden ICD Code: D68.51 Status: Acute (8) Chronic kidney disease, stage 3 ICD Code: N18.3 Status: Acute Assessment and Plan 1. Nonproductive cough, wheeze: Wheezing is improved. Possibly viral bronchitis. Continue bronchodilators, supplemental oxygen as needed. Currently stable on room air. 2. Mild troponin elevation: Appreciate cardiology recommendations. Nuclear stress test ordered. 3. Coronary artery disease: History of CABG. Appreciate cardiology recommendations. 4. Chronic kidney disease stage III: Appreciate nephrology recommendations. Labs are pending this morning. 5. Hyperlipidemia: Continue statin. 6. Factor V Leiden: Continue Coumadin. 7. DVT prophylaxis: Coumadin. Discharge Planning Plan for discharge home if nuclear stress test is negative and patient is cleared by cardiology. Problem Qualifiers (1) Dyspnea: Qualified Code: R06.02 - Shortness of breath Christopher Harper MD Dec 08, 2016 07:57
[2016-12-08 08:00] LABS: INTERNATIONAL NORMALIZED RATIO 2.4 RATIO; PROTHROMBIN TIME - PATIENT 27.1 SEC (9.8-11.6)
[2016-12-08 08:24] LABS: BICARBONATE 25.2 MEQ/L (21.0-32.0); POTASSIUM 3.9 MEQ/L (3.5-5.1)
--- NOTE | 2016-12-08 09:21 | PD.CARD.PN ---
Subjective Subjective Remarks Mild cough. No CP or SOB. Objective Medications Current Medications Medications (Trade) Dose Ordered Sig/Jordi Route PRN Reason Start Time Stop Time Status Last Admin Dose Admin Sodium Chloride (NS 1000 ml Inj) 1,000 ml @ 100 mls/hr Q10H IV 12/07/16 00:04 12/08/16 05:54 IV Flush (NS Flush) 2 ml UNSCH PRN FLUSH FLUSH AFTER USING IV ACCESS 12/07/16 00:15 IV Flush (NS Flush) 2 ml BID FLUSH 12/07/16 09:00 12/07/16 20:58 Ondansetron HCl (Zofran Inj) 4 mg Q6H PRN IVP NAUSEA OR VOMITING 12/07/16 00:15 Bisacodyl (Dulcolax Supp) 10 mg DAILY PRN GA CONSTIPATION 12/07/16 00:15 Acetaminophen (Tylenol) 650 mg Q6H PRN PO FEVER/PAIN SCALE 1 TO 2 12/07/16 00:15 Morphine Sulfate (Morphine Inj) 2 mg Q3H PRN IV Pain 6-10 12/07/16 00:15 Nitroglycerin (Nitroglycerin 2% Oint) 0.5 inch Q6HR PRN TOPICAL CHEST PAIN 12/07/16 00:15 Lisinopril (Prinivil) 20 mg BID PO 12/07/16 09:00 12/07/16 20:58 Atorvastatin Calcium (Lipitor) 40 mg DAILY PO 12/07/16 09:00 12/07/16 07:34 Miscellaneous (Pill Splitter) 1 ea UNSCH PRN OTHER SEE LABEL COMMENTS 12/07/16 00:15 Aspirin 81 mg 81 mg DAILY PO 12/07/16 09:00 12/07/16 08:30 Pharmacy Profile Note (Coumadin Consult Pharmacy) 0 ml @ 0 mls/hr UNSCH OTHER 12/07/16 16:00 Warfarin Sodium (Coumadin) 5 mg SuTuThSa@16 PO 12/08/16 16:00 Warfarin Sodium (Coumadin) 2.5 mg MoWeFr@16 PO 12/10/16 16:00 Amlodipine Besylate (Norvasc) 10 mg DAILY PO 12/08/16 09:00 Atenolol (Tenormin) 25 mg DAILY PO 12/08/16 09:00 Prazosin HCl (Minipress) 2 mg HS PO 12/07/16 21:00 12/07/16 20:58 Vital Signs / I&O Vital Signs Date Time Temp Pulse Resp B/P Pulse Ox O2 Delivery O2 Flow Rate FiO2 12/08/16 08:01 98 Room Air 12/08/16 08:01 97.9 58 16 141/74 98 12/08/16 05:00 53 12/08/16 04:00 Room Air 12/08/16 04:00 52 12/08/16 04:00 98.2 52 18 102/48 96 12/08/16 03:00 55 12/08/16 02:00 57 12/08/16 01:00 56 12/08/16 00:00 Room Air 12/08/16 00:00 98.5 55 18 94/58 97 12/08/16 00:00 55 12/07/16 23:00 54 12/07/16 22:00 56 12/07/16 21:49 98 21 12/07/16 21:00 60 12/07/16 20:00 98.4 63 20 130/69 97 12/07/16 20:00 63 12/07/16 20:00 Room Air 12/07/16 18:00 72 12/07/16 17:00 54 12/07/16 16:30 98.1 63 20 196/84 98 12/07/16 16:00 60 12/07/16 15:00 64 12/07/16 14:00 94 12/07/16 13:45 98.0 59 20 139/72 97 12/07/16 12:50 70 18 155/78 98 12/07/16 11:17 98 Room Air 12/07/16 11:17 69 18 141/70 98 Room Air I/O 12/07/16 12/07/16 12/07/16 12/08/16 12/08/16 12/08/16 07:00 15:00 23:00 07:00 15:00 23:00 Intake Total 1000 ml 480 ml 1240 ml Output Total 900 ml Balance 1000 ml 480 ml 340 ml Intake Oral 480 ml 240 ml IV Total 1000 ml 1000 ml Output Urine Total 900 ml # Voids 1 1 4 # Bowel Movements 1 0 Physical Exam VSS, afeb No JVD Lungs: few wheezes Heart: RRR Ext: No C/C/E Neuro: Intact Laboratory Laboratory Tests Test 12/07/16 12/08/16 11:44 06:48 Troponin I 0.08 NG/ML White Blood Count 3.4 TH/MM3 Red Blood Count 3.58 MIL/MM3 Hemoglobin 10.5 GM/DL Hematocrit 30.9 % Mean Corpuscular Volume 86.4 FL Mean Corpuscular Hemoglobin 29.3 PG Mean Corpuscular Hemoglobin 33.9 % Concent Red Cell Distribution Width 14.7 % Platelet Count 127 TH/MM3 Mean Platelet Volume 9.0 FL Prothrombin Time 27.1 SEC Prothromb Time International 2.4 RATIO Ratio Sodium Level 140 MEQ/L Potassium Level 3.9 MEQ/L Chloride Level 107 MEQ/L Carbon Dioxide Level 25.2 MEQ/L Anion Gap 8 MEQ/L Blood Urea Nitrogen 23 MG/DL Creatinine 1.09 MG/DL Estimat Glomerular Filtration 48 ML/MIN Rate Random Glucose 92 MG/DL Calcium Level 8.6 MG/DL Imaging Last 48 hours Impressions Chest X-Ray 12/06/162147 Signed Impressions: Service Date/Time: November 22:21 - CONCLUSION: No acute disease. Edward Mondragon MD Assessment and Plan Problem List: (1) Cough (2) ASHD (arteriosclerotic heart disease) (3) History of left bundle branch block (LBBB) (4) Chronic kidney disease, stage 3 (5) Factor V Leiden (6) Elevated troponin (7) Hypertension (8) S/P AVR (aortic valve replacement) Assessment and Plan Indeterminate TnI level. Otherwise CV stable. Lexiscan ST sheduled for this AM. If low risk can be discharge home with outpatient F/U Dr. Day. Code Status Full Discussed Condition With Dr. Harper and the patient. Mikhail Joseph MD Dec 08, 2016 09:21
[2016-12-08] MEDS: ATORVASTATIN 40 MG TAB PO SCH (09:59)
[2016-12-08] MEDS: SODIUM CHLORIDE 0.9% FLUSH 5 ML FLUSH FLUSH SCH ×2 (09:59→21:23)
[2016-12-08] MEDS: amLODIPine BESYLATE 5 MG TAB PO SCH (09:59)
[2016-12-08] MEDS: ATENOLOL 25 MG TAB PO SCH (10:00)
[2016-12-08] MEDS: ASPIRIN EC 81 MG TABEC PO SCH (10:00)
[2016-12-08] MEDS: LISINOPRIL 20 MG TAB PO SCH ×2 (10:01→21:22)
[2016-12-08] MEDS ORDERED: AMLO5 PO (15:47)
[2016-12-08] MEDS ORDERED: ATEN25TA PO (15:47)
--- NOTE | 2016-12-08 15:48 | HHI.DCPOC ---
Discharge Care Plan Diagnosis: (1) Cough (2) History of left bundle branch block (LBBB) (3) Chronic kidney disease, stage 3 (4) Factor V Leiden (5) Elevated troponin (6) Hypertension (7) Hyperlipidemia (8) Dyspnea Goals to Promote Your Health * To prevent worsening of your condition and complications * To maintain your health at the optimal level Directions to Meet Your Goals Take your medications as prescribed Follow your dietary instruction Follow activity as directed Keep your appointments as scheduled Take your immunizations and boosters as scheduled If your symptoms worsen call your PCP, if no PCP go to Urgent Care Center or Emergency Room Smoking is Dangerous to Your Health. Avoid second hand smoke Call the 24-hour hour crisis hotline for domestic abuse at Christopher Harper MD Dec 08, 2016 15:48
[2016-12-08] MEDS ORDERED: WARFARIN SOD 5 MG TAB PO SCH (16:00)
[2016-12-08] MEDS ORDERED: REGADENOSON INJ 0.4 MG/5 ML SYR ONE (16:02)
--- NOTE | 2016-12-08 19:22 | RADRPT ---
EXAM DATE/TIME: 12/08/2016 15:24 [place] COMPARISON: No previous studies available for comparison. INDICATIONS : Shortness of breath with mid chest pain for two days. Coronary artery disease. DOSE: 25.2 mCi Tc99m Myoview at stress. 8.8 mCi Tc99m Myoview at rest. 0.4 mg Lexiscan STRESS SYMPTOMS: Shortness of breath. EJECTION FRACTION: 65% MEDICAL HISTORY : Renal failure, chronic. Hypertension. SURGICAL HISTORY : CABG Aortic valve replacement. ENCOUNTER: Initial ACUITY: 2 days PAIN SCALE: 2/10 LOCATION: Midsternal chest TECHNIQUE: The patient underwent pharmacologic stress with infusion of prescribed dose. Continuous ECG tracing was monitored during stress. Gated SPECT imaging was performed after stress and conventional SPECT i maging was performed at rest. The examination was performed on a SPECT/CT scanner, both attenuation and non-corrected datasets were reviewed. FINDINGS: DISTRIBUTION: The maximum perfused segment at stress is in the anterior wall. PERFUSION STUDY: The pattern of perfusion at stress is within normal limits. GATED STUDY: There is intact wall motion and thickening without hypokinetic or dyskinetic segments. CONCLUSION: 1. No significant reversibility to suggest ischemia. 2. Normal wall motion with ejection fraction 65%. RISK CATEGORY: Low (<1% Annual Mortality Rate) Lux Siddiqui MD on December 08, 2016 at 19:15 Board Certified Radiologist. This report was verified electronically.
[2016-12-08] MEDS: PRAZOSIN HCL 1 MG CAP PO SCH (21:22)
[2016-12-09] VITALS (12 sets, daily range): BP systolic 115–141; BP diastolic 57–73; PULSE 55–67; RESP 16–18; TEMP 98–98.3; O2SAT 95–98
[2016-12-09] MEDS: RESP: ALBUTEROL 2.5 MG/IPRATROPIUM 0.5 MG NEB (PRN) NEB (00:14)
[2016-12-09 06:13] LABS: INTERNATIONAL NORMALIZED RATIO 2.1 RATIO; PROTHROMBIN TIME - PATIENT 24.5 SEC (9.8-11.6)
[2016-12-09] MEDS: SODIUM CHLORIDE 0.9% FLUSH 5 ML FLUSH FLUSH SCH (07:52)
[2016-12-09] MEDS: ASPIRIN EC 81 MG TABEC PO SCH (07:54)
[2016-12-09] MEDS: ATORVASTATIN 40 MG TAB PO SCH (07:54)
[2016-12-09] MEDS: amLODIPine BESYLATE 5 MG TAB PO SCH (07:55)
[2016-12-09] MEDS: ATENOLOL 25 MG TAB PO SCH (07:55)
[2016-12-09] MEDS: LISINOPRIL 20 MG TAB PO SCH (07:55)
[2016-12-09] MEDS ORDERED: BENZ1CAP8 PO (07:56)
--- NOTE | 2016-12-09 07:59 | HHI.DS ---
cc: Carolina Campa MD Discharge Summary Admission Date Dec 07, 2016 at 00:08 Discharge Date: Dec 09, 2016 Admitting Diagnosis dyspnea; acs; elevated troponin I (1) Elevated troponin ICD Code: R74.8 (2) Dyspnea ICD Code: R06.00 (3) ACS (acute coronary syndrome) ICD Code: I24.9 (4) History of left bundle branch block (LBBB) ICD Code: Z86.79 (5) Hyperlipidemia ICD Code: E78.5 (6) Hypertension ICD Code: I10 (7) Factor V Leiden ICD Code: D68.51 (8) Chronic kidney disease, stage 3 ICD Code: N18.3 Procedures None Brief History - From Admission The patient is an 80-year-old female who presented to the emergency department for evaluation of mild shortness of breath and wheezing. She also was concerned about significantly elevated blood pressure. She states that her systolic blood pressure was 243 at home yesterday. She states that it has been elevated over the past month, but not quite that high. Denies chest pain. Still having some wheezing. Dry cough. No fever, chills, night sweats. CBC/BMP: 12/08/16 0648 12/08/16 0648 Significant Findings Laboratory Tests Test 12/06/16 12/06/16 12/06/16 12/07/16 22:00 22:30 22:40 05:35 Platelet Count 147 TH/MM3 144 TH/MM3 (150-450) (150-450) Neutrophils (%) (Auto) 74.5 % (16.0-70.0) Eosinophils (%) (Auto) 4.5 % (0.0-4.0) 4.3 % (0.0-4.0) Lymphocytes # (Auto) 0.8 TH/MM3 (1.0-4.8) Prothrombin Time 31.0 SEC (9.8-11.6) Anion Gap 4 MEQ/L (5-15) Creatinine 1.20 MG/DL 1.10 MG/DL (0.50-1.00) (0.50-1.00) Estimat Glomerular Filtration 43 ML/MIN (>89) 48 ML/MIN (>89) Rate Random Glucose 110 MG/DL (74-106) Creatine Kinase MB 3.9 NG/ML (0.5-3.6) Troponin I 0.06 NG/ML 0.16 NG/ML (0.02-0.05) (0.02-0.05) B-Type Natriuretic Peptide 304 PG/ML (0-100) Urine Protein 100 mg/dL (NEG-TRACE) Urine Occult Blood SMALL (NEG) Monocytes (%) (Auto) 10.2 % (0.0-8.0) Test 12/07/16 12/08/16 12/09/16 11:44 06:48 05:04 Troponin I 0.08 NG/ML (0.02-0.05) White Blood Count 3.4 TH/MM3 (4.0-11.0) Red Blood Count 3.58 MIL/MM3 (4.00-5.30) Hemoglobin 10.5 GM/DL (11.6-15.3) Hematocrit 30.9 % (35.0-46.0) Platelet Count 127 TH/MM3 (150-450) Prothrombin Time 27.1 SEC 24.5 SEC (9.8-11.6) (9.8-11.6) Blood Urea Nitrogen 23 MG/DL (7-18) Creatinine 1.09 MG/DL (0.50-1.00) Estimat Glomerular Filtration 48 ML/MIN (>89) Rate Imaging Last Impressions Myocardial Perfusion Scan Nuc Med 12/08/16 0000 Signed Impressions: Service Date/Time: Thursday, December 08, 2016 15:24 - CONCLUSION: 1. No significant reversibility to suggest ischemia. 2. Normal wall motion with ejection fraction 65%%. RISK CATEGORY: Low (<1%% Annual Mortality Rate) Lux Siddiqui MD Chest X-Ray 12/06/16 [id number] Signed Impressions: Service Date/Time: November 22:21 - CONCLUSION: No acute disease. Edward Mondragon MD PE at Discharge General: Elderly female in no acute distress. Heart: Regular rate and rhythm. No murmur. Lungs: Mild scattered wheeze. Breathing is nonlabored. Abdomen: Soft, nontender, nondistended. Extremities: No lower extremity edema. Psych: Alert and oriented. Pt update on day of discharge The patient still reports cough and mild wheeze. Does not feel short of breath. Not requiring supplemental oxygen. Chest pain. Feels ready to go home. Hospital Course The patient was admitted for further evaluation of troponin elevation. She was evaluated by cardiology. Her transportation supervisor was consulted. Nuclear stress test showed no significant reversibility to suggest ischemia. Patient did not have any chest pain. She continued to have cough and intermittent mild wheezing. She was cleared for discharge by cardiology. She was felt to be stable for discharge home. Pt Condition on Discharge: Stable Discharge Disposition: Discharge Home Discharge Time: <= 30 minutes Discharge Instructions DIET: Follow Instructions for: Heart Healthy Diet Activities you can perform: Regular-No Restrictions Follow up Referrals: Cardiology - 1 Week with Dustin Day MD Nephrology with Rachna Becerril MD PCP Follow-up - 12/15/[address] Campa New Medications: Benzonatate (Benzonatate) 100 Mg Cap 100 MG PO TID PRN COUGH #20 Ref 0 CAP Amlodipine (Norvasc) 5 Mg Tab 10 MG PO DAILY Blood Pressure Management #30 Ref 0 TAB Atenolol (Atenolol) 25 Mg Tab 25 MG PO DAILY Blood Pressure Management #30 Ref 0 TAB Continued Medications: Calcium Carbonate-Cholecalciferol (Calcium 500 +D3) 500-600 Mg-Unit Tab 1 TAB PO BID TAB Coenzyme Q10 (Ubidecarenone) (Coq10) 100 Mg Cap Cyanocobalamin (Vitamin B-12) 1,000 Mcg Subl 1000 MCG SL DAILY Nutritional Supplement Ref 0 TAB.SL Lisinopril (Lisinopril) 20 Mg Tab 20 MG PO BID #30 Ref 0 TAB [place]-3 Fatty Acids (Fish Oil) 1,000 Mg Cap Prazosin (Prazosin) 1 Mg Cap 1 MG PO BID Blood Pressure Management #60 Ref 0 CAP Rosuvastatin (Rosuvastatin) 20 Mg Tab 20 MG PO DAILY Cholesterol Management #30 Ref 0 TAB Warfarin (Coumadin) 5 Mg Tab 5 MG PO DIRECTED Blood Clot Prevention #30 Ref 0 TAB Warfarin (Coumadin) 2.5 Mg Tab 2.5 MG PO DIRECTED Prevent Blood Clot #30 Ref 0 TAB Discontinued Medications: Amlodipine (Amlodipine) 5 Mg Tab 5 MG PO DAILY Blood Pressure Management #30 Ref 0 TAB Atenolol (Atenolol) 25 Mg Tab 12.5 MG PO DAILY Blood Pressure Management #30 Ref 0 TAB Christopher Harper MD Dec 09, 2016 07:59
[2016-12-09] MEDS ORDERED: BENZONATATE 100 MG CAP PO PRN (08:00)
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
[2016-12-10] MEDS ORDERED: WARFARIN SOD 2.5 MG TAB PO SCH (16:00)
== END 2016-12-09 10:49 | disposition home or self-care (01) | DRG 947 ==
LOC: PHEFT 21:11 → PHEDA 12-07 00:08 → PHEDH 12-07 04:08 → HCIS 12-07 13:25
PROVIDERS: ADMIT Family Medicine; ATTEND Family Medicine
DX: R74.8 Abnormal levels of other serum enzymes (principal); N18.6 End stage renal disease; I12.0 Hypertensive chronic kidney disease with stage 5 chronic kidney disease or end stage renal disease; I24.9 Acute ischemic heart disease, unspecified; D68.51 Activated protein C resistance; I25.810 Atherosclerosis of coronary artery bypass graft(s) without angina pectoris; E11.22 Type 2 diabetes mellitus with diabetic chronic kidney disease; E78.5 Hyperlipidemia, unspecified; Z95.1 Presence of aortocoronary bypass graft; I35.0 Nonrheumatic aortic (valve) stenosis; Z79.01 Long term (current) use of anticoagulants; Z95.3 Presence of xenogenic heart valve
CPT/HCPCS: 71010; 78452; 80048; 80053; 81001; 82550; 82552; 83735; 83880; 84484; 85025; 85027; 85610; 87804; 93005; 93017; 93306; 94640; 94664; 99285; A9502; J2785; J7030

== ENCOUNTER → 2016-12-18 | Outpatient (CLI) | payer MEDICARE, BC ==
[~2016-12-18] MED LIST changes: -ACET325 PO; +AMLO5 PO; -AMLO5TAB96 PO; -ASPI81 PO; -ATEN-100 PO; +ATEN25TA PO; +BENZ1CAP8 PO; +CALC1TAB55 PO; +COQ1100C; +COUM2.5T PO; +COUM5TAB PO; +FISH1000; -FISH1000 PO; +LISI-515 PO; +PRAZ1CAP PO; -ROSU10 PO; +ROSU1TAB8 PO; +VITA100021 SL; -WARF2.5 PO
[2016-12-18 12:36] LABS: INTERNATIONAL NORMALIZED RATIO 3.9 RATIO; PROTHROMBIN TIME - PATIENT 45.5 SEC (9.8-11.6)
== END ==
LOC: PLAB 10:37
PROVIDERS: ATTEND Family Medicine
DX: Z79.01 Long term (current) use of anticoagulants (principal)
CPT/HCPCS: 36415; 85610

== ENCOUNTER → 2016-12-25 | Outpatient (CLI) | payer MEDICARE, BC ==
[2016-12-25 11:20] LABS: INTERNATIONAL NORMALIZED RATIO 1.8 RATIO; PROTHROMBIN TIME - PATIENT 20.3 SEC (9.8-11.6)
== END ==
LOC: PLAB 10:34
PROVIDERS: ATTEND Family Medicine
DX: Z79.01 Long term (current) use of anticoagulants (principal)
CPT/HCPCS: 36415; 85610

== ENCOUNTER → 2017-01-08 | Outpatient (CLI) | payer MEDICARE, BC ==
[2017-01-08 11:37] LABS: INTERNATIONAL NORMALIZED RATIO 1.8 RATIO; PROTHROMBIN TIME - PATIENT 20.1 SEC (9.8-11.6)
== END ==
LOC: PLAB 10:38
PROVIDERS: ATTEND Family Medicine
DX: Z79.01 Long term (current) use of anticoagulants (principal)
CPT/HCPCS: 36415; 85610

== ENCOUNTER → 2017-01-22 | Outpatient (CLI) | payer MEDICARE, BC ==
[2017-01-22 12:00] LABS: INTERNATIONAL NORMALIZED RATIO 2.5 RATIO; PROTHROMBIN TIME - PATIENT 28.6 SEC (9.8-11.6)
== END ==
LOC: PLAB 10:57
PROVIDERS: ATTEND Family Medicine
DX: Z79.01 Long term (current) use of anticoagulants (principal)
CPT/HCPCS: 36415; 85610

== ENCOUNTER → 2017-02-19 | Outpatient (CLI) | payer MEDICARE, BC ==
[2017-02-19 12:31] LABS: INTERNATIONAL NORMALIZED RATIO 2.7 RATIO; PROTHROMBIN TIME - PATIENT 31.4 SEC (9.8-11.6)
== END ==
LOC: PLAB 09:19
PROVIDERS: ATTEND Family Medicine
DX: Z79.01 Long term (current) use of anticoagulants (principal)
CPT/HCPCS: 36415; 85610

== ENCOUNTER → 2017-03-19 | Outpatient (CLI) | payer MEDICARE, BC ==
[2017-03-19 12:32] LABS: INTERNATIONAL NORMALIZED RATIO 2.5 RATIO; PROTHROMBIN TIME - PATIENT 29.1 SEC (9.8-11.6)
== END ==
LOC: PLAB 10:46
PROVIDERS: ATTEND Family Medicine
DX: Z79.01 Long term (current) use of anticoagulants (principal)
CPT/HCPCS: 36415; 85610

== ENCOUNTER → 2017-03-28 | Outpatient (CLI) | payer MEDICARE, BC ==
[2017-03-28 13:13] LABS: AUTOMATED NEUTROPHIL # 2.9 TH/MM3 (1.8-7.7); BASOPHIL % 0.3 % (0.0-2.0); EOSINOPHIL # 0.2 TH/MM3 (0-0.4); HEMATOCRIT 36.5 % (35.0-46.0); HEMO FLAGS DIFF FINAL; LYMPH % 34.9 % (9.0-44.0); LYMPHOCYTE # 1.8 TH/MM3 (1.0-4.8); MEAN CELL VOLUME 90.4 FL (80.0-100.0); MEAN CORPUSCULAR HEMOGLOBIN 29.6 PG (27.0-34.0); MEAN CORPUSCULAR HGB CONC 32.7 % (32.0-36.0); MONO % 6.8 % (0.0-8.0); PLATELET COUNT 139 TH/MM3 (150-450); RED BLOOD COUNT 4.04 MIL/MM3 (4.00-5.30); RED CELL DISTRIBUTION WIDTH 14.9 % (11.6-17.2); WHITE BLOOD COUNT 5.2 TH/MM3 (4.0-11.0)
[2017-03-28 13:36] LABS: ANION GAP 7 MEQ/L (5-15); AST (GOT) 18 U/L (15-37); BICARBONATE 25.8 MEQ/L (21.0-32.0); BLOOD UREA NITROGEN 28 MG/DL (7-18); CHLORIDE 109 MEQ/L (98-107); GLUCOSE,FASTING 100 MG/DL (74-99); POTASSIUM 4.3 MEQ/L (3.5-5.1); SODIUM (NA) 142 MEQ/L (136-145)
[2017-03-28 13:37] LABS: GLOMERULAR FILTRATION RATE 37 ML/MIN (>89)
[2017-03-28 13:42] LABS: ALKALINE PHOSPHATASE 54 U/L (45-117); ALT (GPT) 22 U/L (10-53); HDL CHOLESTEROL 40.1 MG/DL (40.0-60.0); LDL CHOLESTEROL 73 MG/DL (0-99); TOTAL BILIRUBIN ADULT 0.6 MG/DL (0.2-1.0)
[2017-03-28 14:08] LABS: MICRO ALBUMIN RANDOM URINE RAW 22.8 MG/L (0.0-30.0)
[2017-03-28 16:23] LABS: HEMOGLOBIN A1b 1.6 %; HEMOGLOBIN Ao 84.9 %; HEMOGLOBIN P3 4.2 %
== END ==
LOC: PLAB 08:18
PROVIDERS: ATTEND Family Medicine
DX: I48.91 Unspecified atrial fibrillation (principal); E78.2 Mixed hyperlipidemia; E11.22 Type 2 diabetes mellitus with diabetic chronic kidney disease
CPT/HCPCS: 36415; 80053; 80061; 82043; 83036; 85025

== ENCOUNTER → 2017-04-16 | Outpatient (CLI) | payer MEDICARE, BC ==
[2017-04-16 10:21] LABS: INTERNATIONAL NORMALIZED RATIO 2.2 RATIO; PROTHROMBIN TIME - PATIENT 25.3 SEC (9.8-11.6)
== END ==
LOC: PLAB 09:26
PROVIDERS: ATTEND Family Medicine
DX: Z79.01 Long term (current) use of anticoagulants (principal)
CPT/HCPCS: 36415; 85610

== ENCOUNTER 2017-07-02 09:48 | Emergency (ER) | payer MEDICARE, BC ==
[2017-07-02 09:51] VITALS: BP 101/55; PULSE 62; RESP 15; TEMP 98; O2SAT 100
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
== END 2017-07-02 11:00 | disposition home or self-care (01) ==
LOC: NEPD 09:48
DX: S42.291D Other displaced fracture of upper end of right humerus, subsequent encounter for fracture with routine healing (principal); D68.2 Hereditary deficiency of other clotting factors; I25.10 Atherosclerotic heart disease of native coronary artery without angina pectoris; I10 Essential (primary) hypertension; E78.00 Pure hypercholesterolemia, unspecified; W19.XXXD Unspecified fall, subsequent encounter
CPT/HCPCS: 29240

== ENCOUNTER → 2017-07-09 | Outpatient (CLI) | payer MEDICARE, BC ==
[2017-07-09 10:22] LABS: INTERNATIONAL NORMALIZED RATIO 1.7 RATIO; PROTHROMBIN TIME - PATIENT 19.6 SEC (9.8-11.6)
== END ==
LOC: PLAB 09:29
PROVIDERS: ATTEND Family Medicine
DX: Z79.01 Long term (current) use of anticoagulants (principal)
CPT/HCPCS: 36415; 85610

== ENCOUNTER → 2017-08-13 | Outpatient (CLI) | payer MEDICARE, BC ==
[2017-08-13 11:11] LABS: INTERNATIONAL NORMALIZED RATIO 2.1 RATIO; PROTHROMBIN TIME - PATIENT 23.8 SEC (9.8-11.6)
== END ==
LOC: PLAB 08:15
PROVIDERS: ATTEND Family Medicine
DX: I48.91 Unspecified atrial fibrillation (principal); Z79.01 Long term (current) use of anticoagulants
CPT/HCPCS: 36415; 85610

== ENCOUNTER → 2017-09-10 | Outpatient (CLI) | payer MEDICARE, BC ==
[~2017-09-10] MED LIST changes: +BENZ1CAP54 PO; -BENZ1CAP8 PO
[2017-09-10 10:35] LABS: INTERNATIONAL NORMALIZED RATIO 2.7 RATIO
== END ==
LOC: PLAB 09:41
PROVIDERS: ATTEND Family Medicine
DX: I48.91 Unspecified atrial fibrillation (principal)
CPT/HCPCS: 36415; 85610

== ENCOUNTER → 2017-09-16 | Outpatient (CLI) | payer MEDICARE, BC ==
[2017-09-16 09:51] LABS: AUTOMATED NEUTROPHIL # 3.1 TH/MM3 (1.8-7.7); BASOPHIL % 0.4 % (0.0-2.0); EOSINOPHIL # 0.3 TH/MM3 (0-0.4); EOSINOPHIL % 5.1 % (0.0-4.0); HEMATOCRIT 35.4 % (35.0-46.0); HEMO FLAGS DIFF FINAL; LYMPHOCYTE # 1.9 TH/MM3 (1.0-4.8); MEAN CELL VOLUME 89.3 FL (80.0-100.0); MEAN CORPUSCULAR HEMOGLOBIN 30.1 PG (27.0-34.0); MEAN CORPUSCULAR HGB CONC 33.8 % (32.0-36.0); MONO % 7.2 % (0.0-8.0); NEUT % 54.3 % (16.0-70.0); PLATELET COUNT 156 TH/MM3 (150-450); RED BLOOD COUNT 3.97 MIL/MM3 (4.00-5.30); RED CELL DISTRIBUTION WIDTH 15.8 % (11.6-17.2); WHITE BLOOD COUNT 5.8 TH/MM3 (4.0-11.0)
[2017-09-16 09:54] LABS: BLOOD, URINE NEG (NEG); GLUCOSE,URINE NEG (NEG); KETONE, URINE NEG (NEG); NITRITE,URINE NEG (NEG); SQUAMOUS EPITHELIAL CELL URINE <1 /hpf (0-5); URINE COLOR LIGHT-YELLOW (YELLW/STRAW)
[2017-09-16 09:56] LABS: COMMENT (UR) CULT NOT INDICATED; CULTURE IF INDICATED CULT NOT INDICATED
[2017-09-16 10:17] LABS: ANION GAP 9 MEQ/L (5-15); BICARBONATE 24.5 MEQ/L (21.0-32.0); BLOOD UREA NITROGEN 40 MG/DL (7-18); CHLORIDE 105 MEQ/L (98-107); GLOMERULAR FILTRATION RATE 39 ML/MIN (>89); GLUCOSE,FASTING 113 MG/DL (74-99); POTASSIUM 4.2 MEQ/L (3.5-5.1); SODIUM (NA) 138 MEQ/L (136-145)
[2017-09-16 10:19] LABS: AST (GOT) 17 U/L (15-37)
[2017-09-16 10:36] LABS: ALKALINE PHOSPHATASE 66 U/L (45-117); ALT (GPT) 20 U/L (10-53); HDL CHOLESTEROL 44.1 MG/DL (40.0-60.0); LDL CHOLESTEROL 67 MG/DL (0-99); TOTAL BILIRUBIN ADULT 0.4 MG/DL (0.2-1.0)
[2017-09-16 16:46] LABS: HEMOGLOBIN A1a 1.1 %; HEMOGLOBIN A1b 1.7 %; HEMOGLOBIN Ao 83.9 %; HEMOGLOBIN LA1C 2.3 %; HEMOGLOBIN P3 5.8 %
== END ==
LOC: PLAB 07:49
PROVIDERS: ATTEND Internal Medicine Nephrology
DX: I48.91 Unspecified atrial fibrillation (principal); E78.2 Mixed hyperlipidemia; E11.22 Type 2 diabetes mellitus with diabetic chronic kidney disease; N18.3 Chronic kidney disease, stage 3 (moderate); I12.9 Hypertensive chronic kidney disease with stage 1 through stage 4 chronic kidney disease, or unspecified chronic kidney disease
CPT/HCPCS: 36415; 80053; 80061; 81001; 82570; 83036; 83970; 84100; 84156; 85025

== ENCOUNTER → 2017-10-07 | Outpatient (CLI) | payer MEDICARE, BC ==
[2017-10-07 09:00] LABS: INTERNATIONAL NORMALIZED RATIO 3.1 RATIO; PROTHROMBIN TIME - PATIENT 31.4 SEC (9.8-11.6)
== END ==
LOC: PLAB 07:33
PROVIDERS: ATTEND Family Medicine
DX: I48.91 Unspecified atrial fibrillation (principal)
CPT/HCPCS: 36415; 85610

== ENCOUNTER → 2017-10-22 | Outpatient (CLI) | payer MEDICARE, BC ==
[2017-10-22 09:04] LABS: PROTHROMBIN TIME - PATIENT 20.1 SEC (9.8-11.6)
== END ==
LOC: PLAB 07:38
PROVIDERS: ATTEND Family Medicine
DX: I48.91 Unspecified atrial fibrillation (principal)
CPT/HCPCS: 36415; 85610

== ENCOUNTER → 2017-11-19 | Outpatient (CLI) | payer MEDICARE, BC ==
[2017-11-19 08:35] LABS: INTERNATIONAL NORMALIZED RATIO 2.2 RATIO; PROTHROMBIN TIME - PATIENT 22.2 SEC (9.8-11.6)
== END ==
LOC: PLAB 07:46
PROVIDERS: ATTEND Family Medicine
DX: I48.91 Unspecified atrial fibrillation (principal)
CPT/HCPCS: 36415; 85610

== ENCOUNTER → 2017-12-17 | Outpatient (CLI) | payer MEDICARE, BC ==
[2017-12-17 09:28] LABS: INTERNATIONAL NORMALIZED RATIO 2.1 RATIO; PROTHROMBIN TIME - PATIENT 21.4 SEC (9.8-11.6)
== END ==
LOC: PLAB 08:06
PROVIDERS: ATTEND Family Medicine
DX: I48.91 Unspecified atrial fibrillation (principal)
CPT/HCPCS: 36415; 85610

== ENCOUNTER → 2018-01-14 | Outpatient (CLI) | payer MEDICARE, BC ==
[2018-01-14 10:05] LABS: INTERNATIONAL NORMALIZED RATIO 2.7 RATIO; PROTHROMBIN TIME - PATIENT 27.7 SEC (9.8-11.6)
== END ==
LOC: PLAB 07:42
PROVIDERS: ATTEND Family Medicine
DX: I48.91 Unspecified atrial fibrillation (principal)
CPT/HCPCS: 36415; 85610

== ENCOUNTER → 2018-02-11 | Outpatient (CLI) | payer MEDICARE, BC ==
[~2018-02-11] MED LIST changes: +TRAM50TA PO
[2018-02-11 09:11] LABS: INTERNATIONAL NORMALIZED RATIO 2.5 RATIO; PROTHROMBIN TIME - PATIENT 25.1 SEC (9.8-11.6)
== END ==
LOC: PLAB 07:47
PROVIDERS: ATTEND Family Medicine
DX: I48.91 Unspecified atrial fibrillation (principal)
CPT/HCPCS: 36415; 85610

== ENCOUNTER 2018-02-15 15:45 | Emergency (ER) | payer MEDICARE, BC ==
[~2018-02-15 15:45] MED LIST changes: -TRAM50TA PO
[2018-02-15 15:47] VITALS: BP 140/64; PULSE 99; RESP 20; TEMP 98; O2SAT 98
[2018-02-15] MEDS ORDERED: TRAM50TA PO (16:19)
[2018-02-15] MEDS ORDERED: KETOROLAC TROMETHAMINE 60 MG/2 ML (IM) VIAL IM ONE (16:30)
--- NOTE | 2018-02-15 16:31 | PD ---
HPI Chief Complaint: Musculoskeletal Complaint Time Seen by Provider: 16:02 Travel History International Travel<30 days: No Contact w/Intl Traveler<30days: No Traveled to known affect area: No History of Present Illness HPI 82-year-old female presents the emergency department via POV that she drove herself, complaining of ongoing left sided hip pain with radicular symptoms in the left leg. Patient denies weakness, or bowel or bladder changes. Patient has been seen by her primary care physician twice in the last week, and given "a steroid shot" several days ago. She was given a prescription for dexamethasone, which she states she is allergic to. She states recent trip and fall due to tripping on her cane. She states small contusion to the periorbital region from her glasses, but denies loss of consciousness or headache. This happened several days ago. She states she was not given anything for pain by her primary care physician. She is frustrated that she is not improving. She states she is allergic to cefaclor, dexamethasone, fenofibrate, hydrocodone, and niacin. She has been taking Tylenol without improvement. PFSH Past Medical History Hx Anticoagulant Therapy: Yes Blood Disorders: Yes (FACTOR 5 DISORDER) Heart Rhythm Problems: Yes (heart murmur) Cardiac Catheterization: Yes Cardiovascular Problems: Yes High Cholesterol: Yes Chest Pain: No Congestive Heart Failure: No Coronary Artery Disease: Yes Diabetes: No Diminished Hearing: Yes (HARD OF HEARING) Genitourinary: No Hypertension: Yes Musculoskeletal: No Neurologic: No Reproductive: Yes (PROLAPSED UTERUS) Respiratory: No Myocardial Infarction: No Tetanus Vaccination: Unknown Influenza Vaccination: Yes ?: Not Menopausal: Yes Past Surgical History Abdominal Surgery: No Cardiac Surgery: Yes (Valve replacement) Coronary Artery Bypass Graft: Yes (x3) Ear Surgery: No Endocrine Surgery: No Eye Surgery: No Genitourinary Surgery: No Gynecologic Surgery: No Neurologic Surgery: Yes (NECK X 2 -DISC) Oral Surgery: No Thoracic Surgery: Yes (CABG) Other Surgery: Yes Family History Family Myocardial Infarction: Yes Social History Alcohol Use: No Tobacco Use: No Substance Use: No Allergies-Medications (Allergen,Severity, Reaction): Coded Allergies: cefaclor (Unverified Allergy, Severe, Hives, 02/15/18) dexamethasone (Unverified Allergy, Severe, Confusion, 02/15/18) fenofibrate (Unverified Allergy, Severe, HIVES, 02/15/18) hydrocodone (Unverified Allergy, Severe, Hives, 02/15/18) niacin (Unverified Allergy, Severe, HIVES, 02/15/18) Reported Meds & Prescriptions Reported Meds & Active Scripts Active Tramadol (Tramadol HCl) 50 Mg Tab 50 Mg PO Q6H PRN Benzonatate 100 Mg Cap 100 Mg PO TID PRN Atenolol 25 Mg Tab 25 Mg PO DAILY Norvasc (Amlodipine Besylate) 5 Mg Tab 10 Mg PO DAILY Reported Fish Oil ([place]-3 Fatty Acids) 1,000 Mg Cap Calcium 500 +D3 (Calcium Carbonate-Cholecalciferol) 500-600 Mg-Unit Tab 1 Tab PO BID Vitamin B-12 (Cyanocobalamin) 1,000 Mcg Subl 1,000 Mcg SL DAILY Coq10 (Coenzyme Q10 (Ubidecarenone)) 100 Mg Cap Coumadin (Warfarin) 2.5 Mg Tab 2.5 Mg PO DIRECTED Coumadin (Warfarin) 5 Mg Tab 5 Mg PO DIRECTED Rosuvastatin (Rosuvastatin Calcium) 20 Mg Tab 20 Mg PO DAILY Lisinopril 20 Mg Tab 20 Mg PO BID Prazosin (Prazosin HCl) 1 Mg Cap 1 Mg PO BID Review of Systems Except as stated in HPI: all other systems reviewed are Neg General / Constitutional: No: Fever Eyes: No: Visual changes HENT: No: Headaches Cardiovascular: No: Chest Pain or Discomfort Respiratory: No: Shortness of Breath Gastrointestinal: No: Abdominal Pain Genitourinary: No: Dysuria Musculoskeletal: Positive: Arthralgias, Limited ROM, Pain (See history of present illness) Skin: No Rash Neurologic: No: Weakness Psychiatric: No: Depression Endocrine: No: Polydipsia Hematologic/Lymphatic: No: Easy Bruising Physical Exam Narrative GENERAL: Patient appears in mild to moderate distress SKIN: Warm and dry. Normal color. Normal turgor. No rash per HEAD: Atraumatic. Normocephalic. EYES: Pupils equal and round. No scleral icterus. No injection or drainage. ENT: No nasal bleeding or discharge. Mucous membranes pink and moist. Pharynx is clear. Airways patent. NECK: Trachea midline. No bony tenderness or step-off. Range of motion is full and nontender. CARDIOVASCULAR: Regular rate and rhythm. RESPIRATORY: No accessory muscle use. Clear to auscultation. Breath sounds equal bilaterally. MUSCULOSKELETAL: Extremities without clubbing, cyanosis, or edema. No obvious deformities. Patient has specific point tenderness along the left sacroiliac region with positive sciatic symptoms into the left foot. There is no significant weakness noted. NEUROLOGICAL: Awake and alert. No obvious cranial nerve deficits. Motor grossly within normal limits. Five out of 5 muscle strength in the arms and legs. Normal speech. PSYCHIATRIC: Appropriate mood and affect; insight and judgment normal. Data Data Last Documented VS Vital Signs Date Time Temp Pulse Resp B/P (MAP) Pulse Ox O2 Delivery O2 Flow Rate FiO2 02/15/18 15:47 98.0 99 20 140/64 (89) 98 Orders Orders Ketorolac Inj (Toradol Inj) (02/15/18 16:30) [facility] Medical Decision Making Medical Screen Exam Complete: Yes Emergency Medical Condition: Yes Medical Record Reviewed: Yes Differential Diagnosis Left hip pain. Sciatica. Sacroiliitis. Narrative Course X-rays are not felt warranted based on my history and physical. Patient is given 15 mg Toradol IM injection. Patient will be given tramadol 50 mg 1 every 6 hours as needed pain #20. Patient should rest, use ice and heat and follow-up with her primary care physician next week. Anti-inflammatories otherwise are not recommended due to her use of warfarin. Diagnosis Primary Impression: Left-sided low back pain with sciatica Qualified Codes: M54.42 - Lumbago with sciatica, left side Additional Impression: Sacroiliitis Referrals: Primary Care Physician Patient Instructions: General Instructions, Lower Back Exercises (ED), Lumbar Radiculopathy (ED), Sacroiliitis (ED) Med/Other Pt SpecificInfo: Prescription(s) given Scripts Tramadol (Tramadol) 50 Mg Tab 50 MG PO Q6H Y for PAIN, #20 TAB 0 Refills Prov: Christopher Cody MD 02/15/18 Disposition: 01 DISCHARGE HOME Condition: Stable Abran Nj Feb 15, 2018 16:30
== END 2018-02-15 17:02 | disposition home or self-care (01) ==
LOC: NEPD 15:45
DX: M54.42 Lumbago with sciatica, left side (principal); M46.1 Sacroiliitis, not elsewhere classified; E78.00 Pure hypercholesterolemia, unspecified; I10 Essential (primary) hypertension
CPT/HCPCS: 96372; 99283; J1885